=== PATIENT | male | born 1940 | race Caucasian/White ===

== ENCOUNTER 2017-06-07 05:44 | Inpatient (IN) | payer OTHER ==
[2017-06-05 10:10] VITALS: BP 136/83
[2017-06-05 10:25] LABS: BASOPHILS % (AUTO) 1.2 % (0.0-5.0); EOSINOPHILS % (AUTO) 2.9 % (0.0-8.0); HEMATOCRIT 40.2 % (42-54); LYMPHOCYTES % (AUTO) 18.6 % (21.0-51.0); MEAN CORPUSCULAR HEMOGLOBIN 30.2 pg (27.0-33.0); MEAN CORPUSCULAR HGB CONC 34.3 g/dL (32.0-36.0); MONOCYTES % (AUTO) 8.8 % (3.0-13.0); NEUTROPHILS % (AUTO) 68.5 % (40.0-77.0); PLATELET COUNT (AUTO) 138 K/uL (130-400); RED BLOOD CELL COUNT(AUTO) 4.56 MIL/uL (4.50-6.20); WHITE BLOOD COUNT (AUTO) 9.7 K/uL (4.8-10.8)
[2017-06-05 10:36] LABS: CREATININE 1.1 mg/dL (0.5-1.5)
[2017-06-05 10:37] LABS: PARTIAL THROMBOPLASTIN TIME 27.2 SEC (26.3-35.5); PROTHROMBIN TIME 10.5 SEC (9.6-11.6)
[2017-06-05 11:13] LABS: BILIRUBIN,URINE Small (NEGATIVE); COLOR,URINE Dark Yellow (YELLOW); GLUCOSE, URINE (UA) Negative (NEGATIVE); KETONES,URINE Negative (NEGATIVE); LEUKOCYTE ESTERASE ,URINE Trace (NEGATIVE); NITRATE,URINE Negative (NEGATIVE); OCCULT BLOOD,URINE Negative (NEGATIVE); PH,URINE 5.5 (5.0-8.0); PROTEIN,URINE Negative (NEGATIVE)
[2017-06-05 11:24] LABS: APPEARANCE,URINE CLEAR (CLEAR)
[2017-06-05 11:36] LABS: BACTERIA,URINE None Seen /HPF (None Seen); RBC,URINE None Seen /HPF (0-1); SQUAMOUS EPITHELIAL CELL,UR 0-2 /HPF (0-2); WBC,URINE 0-1 /HPF (0-1)
[2017-06-07] VITALS (19 sets, daily range): BP systolic 111–151; BP diastolic 68–93
[~2017-06-07] VITALS: Ht 172.7 cm; Wt 119.3 kg
[~2017-06-07 05:44] MED LIST: ALLO100T PO; ASPI-555 PO; DOXA4TAB3 PO; LISI40TA4 PO; METF500T6 PO; OMEP20TA25 PO; RIVA20TA PO; SIMV40TA5 PO; TRIA1TAB5 PO
[2017-06-07] MEDS ORDERED: SODIUM CHLORIDE 0.9% 1000ML 1,000 ML IV ONE (06:19)
[2017-06-07] MEDS ORDERED: HEPARIN SODIUM 1000UNIT/ML 10ML VIAL ONE ×2 (07:12→07:20)
[2017-06-07] MEDS ORDERED: LIDOCAINE HCL-MPF 2% 5ML VIAL ONE (07:13)
[2017-06-07] MEDS ORDERED: ISOVUE-370 50ML VIAL IV ONE (07:13)
[2017-06-07] MEDS ORDERED: IOPAMIDOL-370 100 ML VIAL IV ONE ×2 (07:13→07:48)
[2017-06-07] MEDS ORDERED: ATROPINE SULFATE 0.1 MG/ML 10 ML SYG IVP ONE (08:02)
[2017-06-07] MEDS ORDERED: DEXTROSE 50%-WATER 50 ML DISP.SYRIN IV PRN (09:00)
[2017-06-07] MEDS: METFORMIN HCL 500 MG TABLET PO SCH ×2 (09:00→20:50)
[2017-06-07] MEDS ORDERED: LISINOPRIL 40 MG TABLET PO SCH (09:00)
[2017-06-07] MEDS ORDERED: ALLOPURINOL 100 MG TABLET PO SCH (09:00)
[2017-06-07] MEDS ORDERED: ASPIRIN 81 MG EC TAB PO SCH (09:00)
[2017-06-07] MEDS ORDERED: GLUCAGON 1MG KIT 1 MG ML IM PRN (09:00)
[2017-06-07] MEDS ORDERED: MORPHINE SULFATE 5 MG/ML VIAL IVP SCH (10:15)
[2017-06-07] MEDS ORDERED: ONDANSETRON HCL MDV 20ML 2 MG/ML VIAL IVP SCH (10:15)
[2017-06-07] MEDS: INSULIN HUMULIN R 100 UNIT/ML 3ML SQ SCH ×3 (11:30→21:00)
[2017-06-07 12:24] LABS: CHOLESTEROL 132 mg/dL (<200); HDL CHOLESTEROL 51 mg/dL (29-71); LDL DIRECT 79 mg/dL (0-99); TRIGLYCERIDES 130 mg/dL (30-200)
[2017-06-07 12:35] LABS: HEMOGLOBIN A1C 7.1 % (4.0-6.0)
[2017-06-07 19:11] LABS: CHOLESTEROL 125 mg/dL (<200); HDL CHOLESTEROL 42 mg/dL (29-71); LDL DIRECT 66 mg/dL (0-99); TRIGLYCERIDES 236 mg/dL (30-200)
[2017-06-07] MEDS ORDERED: ACETAMINOPHEN-CODEINE 300/30MG TAB PO PRN (20:15)
[2017-06-07] MEDS ORDERED: ACETAMINOPHEN-CODEINE 300/30MG TAB ONE (20:40)
[2017-06-07] MEDS ORDERED: TRIAMTERENE/HYDROCHLOROTHIAZIDE 37.5/25 MG CAP PO SCH (21:00)
[2017-06-07] MEDS ORDERED: ATORVASTATIN CALCIUM 20 MG TABLET PO SCH (21:00)
[2017-06-08] VITALS (15 sets, daily range): BP systolic 78–155; BP diastolic 43–87
[2017-06-08 03:59] LABS: BASOPHILS % (AUTO) 0.8 % (0.0-5.0); EOSINOPHILS % (AUTO) 1.1 % (0.0-8.0); HEMATOCRIT 38.8 % (42-54); LYMPHOCYTES % (AUTO) 18.4 % (21.0-51.0); MEAN CORPUSCULAR HEMOGLOBIN 29.6 pg (27.0-33.0); MEAN CORPUSCULAR HGB CONC 33.9 g/dL (32.0-36.0); MEAN CORPUSCULAR VOLUME 87.5 fL (79-99); MONOCYTES % (AUTO) 9.4 % (3.0-13.0); NEUTROPHILS % (AUTO) 70.3 % (40.0-77.0); PLATELET COUNT (AUTO) 145 K/uL (130-400); RED BLOOD CELL COUNT(AUTO) 4.43 MIL/uL (4.50-6.20); RED CELL DISTRIBUTION WIDTH 14.9 % (11.0-15.5); WHITE BLOOD COUNT (AUTO) 13.6 K/uL (4.8-10.8)
[2017-06-08 04:18] LABS: CREATININE 1.2 mg/dL (0.5-1.5); POTASSIUM 3.7 mmol/L (3.5-5.1)
[2017-06-08] MEDS ORDERED: POTASSIUM CHLORIDE 20MEQ/100ML 100 ML IV ONE (05:33)
[2017-06-08] MEDS ORDERED: LIDOCAINE HCL-MPF 1% 2ML VIAL ONE (05:37)
[2017-06-08] MEDS: INSULIN HUMULIN R 100 UNIT/ML 3ML SQ SCH (06:24)
[2017-06-08] MEDS ORDERED: PANTOPRAZOLE SODIUM 40 MG TABLET.DR PO SCH (09:00)
[2017-06-08] MEDS ORDERED: DOXAZOSIN MESYLATE 2 MG TABLET PO SCH (09:00)
[2017-06-08] MEDS ORDERED: CEFUROXIME SODIUM 1.5 GM VIAL IVP SCH (09:00)
[2017-06-08 09:01] LABS: BASOPHILS % (AUTO) 0.4 % (0.0-5.0); EOSINOPHILS % (AUTO) 0.6 % (0.0-8.0); HEMATOCRIT 40.5 % (42-54); LYMPHOCYTES % (AUTO) 12.3 % (21.0-51.0); MEAN CORPUSCULAR HEMOGLOBIN 29.6 pg (27.0-33.0); MEAN CORPUSCULAR HGB CONC 33.7 g/dL (32.0-36.0); MEAN CORPUSCULAR VOLUME 87.9 fL (79-99); MONOCYTES % (AUTO) 8.4 % (3.0-13.0); NEUTROPHILS % (AUTO) 78.3 % (40.0-77.0); PLATELET COUNT (AUTO) 130 K/uL (130-400); RED BLOOD CELL COUNT(AUTO) 4.61 MIL/uL (4.50-6.20); RED CELL DISTRIBUTION WIDTH 14.6 % (11.0-15.5); WHITE BLOOD COUNT (AUTO) 13.1 K/uL (4.8-10.8)
[2017-06-08 09:56] LABS: APPEARANCE,URINE Cloudy (CLEAR); BILIRUBIN,URINE Negative (NEGATIVE); COLOR,URINE Yellow (YELLOW); GLUCOSE, URINE (UA) Negative (NEGATIVE); KETONES,URINE Negative (NEGATIVE); LEUKOCYTE ESTERASE ,URINE Negative (NEGATIVE); NITRATE,URINE Negative (NEGATIVE); OCCULT BLOOD,URINE Negative (NEGATIVE); PH,URINE 7.5 (5.0-8.0); PROTEIN,URINE Negative (NEGATIVE)
[2017-06-08] MEDS ORDERED: GLYCOPYRROLATE 0.2 MG/ML 5 ML VIAL ONE (10:20)
[2017-06-08] MEDS ORDERED: HEPARIN SODIUM 1000UNIT/ML 10ML VIAL ONE ×2 (10:20→15:41)
[2017-06-08] MEDS ORDERED: LIDOCAINE PF 2% 5ML ABBOJECT ONE (10:20)
[2017-06-08] MEDS ORDERED: ESMOLOL HCL 10 MG/ML 10 ML VIAL ONE ×2 (10:20→17:19)
[2017-06-08] MEDS ORDERED: PROTAMINE SULFATE 10 MG/ML 25ML VIAL IV ONE (10:20)
[2017-06-08] MEDS ORDERED: PROPOFOL 10 MG/ML 20ML VIAL IV ONE (10:21)
[2017-06-08] MEDS ORDERED: EPINEPHRINE 1 MG/ML AMPULE ONE (10:21)
[2017-06-08] MEDS ORDERED: MILRINONE-D5W 20 MG/100 ML 0 ML IV ONE (10:21)
[2017-06-08] MEDS ORDERED: MIDAZOLAM HCL 1 MG/ML 5ML VIAL ONE (10:21)
[2017-06-08] MEDS ORDERED: KETAMINE 50MG/ML SYRINGE 50 MG/ML DISP.SYRIN IV ONE (10:21)
[2017-06-08] MEDS ORDERED: NOREPINEPHRINE BITARTRATE 1 MG/1 ML ML IV ONE (10:21)
[2017-06-08] MEDS ORDERED: AMINOCAPROIC ACID 250 MG/ML 20 ML VIAL IV ONE (10:21)
[2017-06-08] MEDS ORDERED: ROCURONIUM BROMIDE 10MG/1ML 5ML VL ONE ×2 (10:21→18:03)
[2017-06-08 10:28] LABS: BACTERIA,URINE Rare /HPF (None Seen); RBC,URINE 0-1 /HPF (0-1); SQUAMOUS EPITHELIAL CELL,UR Rare /HPF (0-2); WBC,URINE 0-1 /HPF (0-1)
[2017-06-08] MEDS ORDERED: CEFUROXIME 1.5GM+NS 100ML 100 ML IV SCH (14:00)
[2017-06-08] MEDS ORDERED: NITROGLYCERIN 50 MG/D5% WATER 1 BOT ONE (14:01)
[2017-06-08] MEDS ORDERED: PAPAVERINE HCL 30 MG/ML 2ML VIAL ONE (15:34)
[2017-06-08] MEDS ORDERED: OCTYL 2-CYANOACRYLATE 1 EACH TP ONE (15:34)
[2017-06-08] MEDS ORDERED: BACITRACIN 50,000 UNIT VIAL ONE (15:34)
[2017-06-08 15:40] LABS: ABG BASE EXCESS 0.6 mmol/L (-2.0-3.0); ABG HCO3 23.9 mmol/L (21.0-28.0); ABG OXYGEN SATURATION 99.2 % (95.0-99.0); ABG PCO2 34 mmHg (35-48)
[2017-06-08] MEDS ORDERED: THROMBIN-JMI 5000 UNIT/VIAL TP ONE (15:42)
[2017-06-08 17:12] LABS: ABG HCO3 21.1 mmol/L (21.0-28.0); ABG OXYGEN SATURATION 99.2 % (95.0-99.0); ABG PCO2 39 mmHg (35-48)
[2017-06-08] MEDS ORDERED: SODIUM CHLORIDE 0.9% 500ML 500 ML IV SCH (17:44)
[2017-06-08] MEDS ORDERED: DEXTROSE 50%-WATER 50 ML DISP.SYRIN IV PRN (17:45)
[2017-06-08] MEDS ORDERED: SODIUM CHLORIDE 0.9% 1000ML 1,000 ML IV SCH (17:45)
[2017-06-08] MEDS ORDERED: POTASSIUM PHOS 15 mMOL+NS250ML 250 ML IV PRN (17:45)
[2017-06-08] MEDS ORDERED: CALCIUM GLUCONATE 1 GM in SODIUM CHLORIDE 0.9% 50 ML IV PRN (17:45)
[2017-06-08] MEDS ORDERED: ONDANSETRON HCL MDV 20ML 2 MG/ML VIAL IV PRN (17:45)
[2017-06-08] MEDS ORDERED: ALBUMIN (HUMAN) 5% 250 ML IV PRN (17:45)
[2017-06-08] MEDS ORDERED: SODIUM CHLORIDE 0.9% 10 ML VIAL IVP PRN (17:45)
[2017-06-08] MEDS ORDERED: PROPOFOL 1000 MG/100 ML 100 ML IV PRN (17:45)
[2017-06-08] MEDS ORDERED: GLUCAGON 1MG KIT 1 MG ML IM PRN (17:45)
[2017-06-08] MEDS ORDERED: NITROGLYCERIN 50 MG/D5% WATER 250 BOT IV SCH (17:45)
[2017-06-08] MEDS ORDERED: AMINOCAPROIC ACID 15,000 MG in SODIUM CHLORIDE 0.9% 250 ML IV SCH (17:45)
[2017-06-08] MEDS ORDERED: SODIUM CHLORIDE 0.9% 250 ML IV PRN (17:45)
[2017-06-08] MEDS ORDERED: ACETAMINOPHEN 650 MG SUPPOSITORY RC PRN (17:45)
[2017-06-08] MEDS ORDERED: MORPHINE SULFATE 4 MG/1ML SYG IV PRN (17:45)
[2017-06-08] MEDS ORDERED: NICARDIPINE HCL 100 MG in SODIUM CHLORIDE 0.9% 60 ML IV PRN (17:45)
[2017-06-08] MEDS ORDERED: NOREPINEPHRINE 4MG/NS 250ML 250 ML IV PRN (17:45)
[2017-06-08] MEDS ORDERED: EPINEPHRINE 2 MG in SODIUM CHLORIDE 0.9% 250 ML IV PRN (17:45)
[2017-06-08] MEDS ORDERED: FENTANYL CITRATE PF 50 MCG/1 ML 5ML AMP IV ONE ×2 (17:48→17:49)
[2017-06-08 18:03] LABS: ABG BASE EXCESS -4.5 mmol/L (-2.0-3.0); ABG HCO3 21.1 mmol/L (21.0-28.0); ABG OXYGEN SATURATION 99.2 % (95.0-99.0); ABG PCO2 41 mmHg (35-48)
[2017-06-08] MEDS ORDERED: SODIUM BICARB 50MEQ 50ML VIAL ONE ×5 (18:05→22:40)
[2017-06-08 19:09] LABS: ABG BASE EXCESS -7.7 mmol/L (-2.0-3.0); ABG HCO3 19.2 mmol/L (21.0-28.0); ABG OXYGEN SATURATION 96.4 % (95.0-99.0); ABG PCO2 45 mmHg (35-48)
[2017-06-08 19:15] LABS: HEMATOCRIT 37.6 % (42-54); MEAN CORPUSCULAR HEMOGLOBIN 29.6 pg (27.0-33.0); MEAN CORPUSCULAR HGB CONC 33.3 g/dL (32.0-36.0); PLATELET COUNT (AUTO) 169 K/uL (130-400); RED BLOOD CELL COUNT(AUTO) 4.23 MIL/uL (4.50-6.20); RED CELL DISTRIBUTION WIDTH 15.1 % (11.0-15.5)
[2017-06-08] MEDS: INSULIN REGULAR, HUMAN 3ML 100 UNIT in SODIUM CHLORIDE 0.9% 99 ML IV SCH ×2 (19:17)
[2017-06-08 19:28] LABS: WHITE BLOOD COUNT (AUTO) 34.1 K/uL (4.8-10.8)
[2017-06-08 19:29] LABS: CREATININE 1.2 mg/dL (0.5-1.5); PHOSPHORUS 4.4 mg/dL (2.5-4.9); POTASSIUM 3.3 mmol/L (3.5-5.1)
[2017-06-08] MEDS: MAGNESIUM 2GM PREMIX 50ML 50 ML IV PRN ×2 (19:37→21:08)
[2017-06-08] MEDS: POTASSIUM CHLORIDE 20MEQ/100ML 100 ML IV PRN ×2 (19:39→20:53)
[2017-06-08] MEDS ORDERED: DIGOXIN 250 MCG/ML 2ML AMP ONE (19:47)
[2017-06-08 19:57] LABS: BAND NEUTROPHILS % (MANUAL) 6 % (0-2); EOSINOPHILS % (MANUAL) 1 % (1-6); LYMPHOCYTES % (MANUAL) 13 % (22-44); MAN.DIFF COMMENT-IMPRESSION MANUAL DIFFERENTIAL; MONOCYTES % (MANUAL) 4 % (2-9); SEGMENTED NEUTROPHILS % 76 % (40-70)
[2017-06-08] MEDS ORDERED: DIGOXIN 250 MCG TABLET PO SCH (20:00)
[2017-06-08] MEDS: MORPHINE SULFATE 2 MG/ML 1ML SYG IV PRN (20:01)
[2017-06-08 20:07] LABS: PLATELET MORPHOLOGY COMMENT LARGE PLTS
[2017-06-08 20:21] LABS: ABG BASE EXCESS -2.4 mmol/L (-2.0-3.0); ABG OXYGEN SATURATION 97.3 % (95.0-99.0); ABG PCO2 48 mmHg (35-48)
[2017-06-08] MEDS ORDERED: SODIUM CHLORIDE 0.9% 1000ML 1,000 ML IV ONE (20:35)
[2017-06-08] MEDS: SODIUM BICARB 8.4% 50ML SYRINGE IV PRN ×2 (20:43→22:42)
[2017-06-08 21:43] LABS: ABG BASE EXCESS -3.8 mmol/L (-2.0-3.0); ABG HCO3 21.3 mmol/L (21.0-28.0); ABG OXYGEN SATURATION 98.3 % (95.0-99.0); ABG PCO2 39 mmHg (35-48)
[2017-06-08 23:08] LABS: ABG BASE EXCESS -1.2 mmol/L (-2.0-3.0); ABG HCO3 23.8 mmol/L (21.0-28.0); ABG OXYGEN SATURATION 96.7 % (95.0-99.0); ABG PCO2 41 mmHg (35-48)
[2017-06-08 23:23] LABS: POTASSIUM 3.8 mmol/L (3.5-5.1)
[2017-06-09] VITALS (24 sets, daily range): BP systolic 91–136; BP diastolic 47–86
[2017-06-09] MEDS: MORPHINE SULFATE 2 MG/ML 1ML SYG IV PRN (00:08)
[2017-06-09 01:23] LABS: ABG BASE EXCESS -0.5 mmol/L (-2.0-3.0); ABG HCO3 24.2 mmol/L (21.0-28.0); ABG OXYGEN SATURATION 97.8 % (95.0-99.0); ABG PCO2 40 mmHg (35-48)
[2017-06-09] MEDS: POTASSIUM CHLORIDE 20MEQ/100ML 100 ML IV PRN ×3 (01:26→16:00)
[2017-06-09] MEDS ORDERED: CEFUROXIME 1.5GM+NS 100ML 100 ML IV SCH (01:45)
[2017-06-09] MEDS: CEFUROXIME SODIUM 1.5 GM VIAL IVP SCH ×2 (02:51→15:25)
[2017-06-09] MEDS ORDERED: CALCIUM GLUCONATE 1 GM/10 ML VIAL IV ONE (02:59)
[2017-06-09 04:28] LABS: HEMATOCRIT 33.7 % (42-54); MEAN CORPUSCULAR HEMOGLOBIN 30.9 pg (27.0-33.0); MEAN CORPUSCULAR HGB CONC 35.2 g/dL (32.0-36.0); MEAN CORPUSCULAR VOLUME 87.7 fL (79-99); PLATELET COUNT (AUTO) 157 K/uL (130-400); RED BLOOD CELL COUNT(AUTO) 3.84 MIL/uL (4.50-6.20); RED CELL DISTRIBUTION WIDTH 15.1 % (11.0-15.5)
[2017-06-09] MEDS: ACETAMINOPHEN 325 MG TAB PO PRN ×3 (04:36→13:16)
[2017-06-09 04:41] LABS: CREATININE 1.4 mg/dL (0.5-1.5); PHOSPHORUS 2.1 mg/dL (2.5-4.9); POTASSIUM 4.2 mmol/L (3.5-5.1)
[2017-06-09] MEDS: INSULIN REGULAR, HUMAN 3ML 100 UNIT in SODIUM CHLORIDE 0.9% 99 ML IV SCH ×2 (05:08)
[2017-06-09] MEDS: HYDROCODONE/ACETAMINOPHEN 5/325 MG TAB PO PRN ×3 (05:47→19:26)
[2017-06-09] MEDS: PANTOPRAZOLE SODIUM 40 MG TABLET.DR PO SCH (08:28)
[2017-06-09] MEDS: ALLOPURINOL 100 MG TABLET PO SCH (08:29)
[2017-06-09] MEDS ORDERED: DOXAZOSIN MESYLATE 2 MG TABLET PO SCH (09:00)
[2017-06-09 15:02] LABS: MAGNESIUM 1.9 mg/dL (1.80-2.40); PHOSPHORUS 3.2 mg/dL (2.5-4.9); POTASSIUM 3.9 mmol/L (3.5-5.1)
[2017-06-09] MEDS: DIGOXIN 250 MCG/ML 2ML AMP IV SCH ×2 (15:59→19:43)
[2017-06-09] MEDS: MAGNESIUM 2GM PREMIX 50ML 50 ML IV PRN (17:18)
[2017-06-09 20:22] LABS: ABG BASE EXCESS 2.6 mmol/L (-2.0-3.0); ABG HCO3 27.3 mmol/L (21.0-28.0); ABG OXYGEN SATURATION 94.7 % (95.0-99.0); ABG PCO2 42 mmHg (35-48)
[2017-06-10] VITALS (21 sets, daily range): BP systolic 94–149; BP diastolic 48–77
[2017-06-10] MEDS: DIGOXIN 250 MCG/ML 2ML AMP IV SCH ×2 (00:58→06:15)
[2017-06-10 04:52] LABS: HEMATOCRIT 30.9 % (42-54); MEAN CORPUSCULAR HEMOGLOBIN 30.4 pg (27.0-33.0); MEAN CORPUSCULAR HGB CONC 34.6 g/dL (32.0-36.0); MEAN CORPUSCULAR VOLUME 87.9 fL (79-99); PLATELET COUNT (AUTO) 111 K/uL (130-400); RED BLOOD CELL COUNT(AUTO) 3.51 MIL/uL (4.50-6.20); RED CELL DISTRIBUTION WIDTH 15.1 % (11.0-15.5); WHITE BLOOD COUNT (AUTO) 27.5 K/uL (4.8-10.8)
[2017-06-10 05:17] LABS: CREATININE 1.2 mg/dL (0.5-1.5); POTASSIUM 4.3 mmol/L (3.5-5.1)
[2017-06-10] MEDS: HYDROCODONE/ACETAMINOPHEN 5/325 MG TAB PO PRN ×2 (06:16→18:26)
[2017-06-10] MEDS ORDERED: CEFUROXIME SODIUM 1.5 GM VIAL ONE (06:17)
[2017-06-10] MEDS: CEFUROXIME SODIUM 1.5 GM VIAL IVP SCH (06:18)
[2017-06-10] MEDS: INSULIN HUMULIN R 100 UNIT/ML 3ML SQ SCH ×4 (07:30→19:59)
[2017-06-10] MEDS: METOCLOPRAMIDE 5 MG TABLET PO SCH ×4 (07:34→19:44)
[2017-06-10] MEDS: SIMETHICONE 80 MG TAB.CHEW PO SCH ×4 (09:31→19:45)
[2017-06-10] MEDS ORDERED: FUROSEMIDE 10 MG/ML 4ML VIAL IV SCH (09:58)
[2017-06-10] MEDS ORDERED: FUROSEMIDE 100 MG in SODIUM CHLORIDE 0.9% 90 ML IV SCH (10:00)
[2017-06-10] MEDS ORDERED: FUROSEMIDE 10 MG/ML 4ML VIAL ONE (10:01)
[2017-06-10] MEDS: PANTOPRAZOLE SODIUM 40 MG TABLET.DR PO SCH (10:53)
[2017-06-10] MEDS: DOXAZOSIN MESYLATE 2 MG TABLET PO SCH (10:54)
[2017-06-10] MEDS: ALLOPURINOL 100 MG TABLET PO SCH (10:54)
[2017-06-10] MEDS: IPRATROPIUM 0.5 MG/2.5 ML INH IH SCH ×3 (11:01→23:29)
[2017-06-10] MEDS ORDERED: MAG HYDROX/AL HYDROX/SIMETH ES 30 ML SUSP UDCUP ONE (17:03)
[2017-06-10] MEDS ORDERED: MAG HYDROX/AL HYDROX/SIMETH ES 30 ML SUSP UDCUP PO PRN (17:15)
[2017-06-10] MEDS: ATORVASTATIN CALCIUM 40 MG TABLET PO SCH (19:44)
[2017-06-10] MEDS ORDERED: METOPROLOL TARTRATE 25 MG TAB PO SCH (21:00)
[2017-06-11] VITALS (12 sets, daily range): BP systolic 88–112; BP diastolic 54–68
[2017-06-11 05:21] LABS: HEMATOCRIT 28.7 % (42-54); MEAN CORPUSCULAR HEMOGLOBIN 31.1 pg (27.0-33.0); MEAN CORPUSCULAR HGB CONC 35.1 g/dL (32.0-36.0); MEAN CORPUSCULAR VOLUME 88.7 fL (79-99); PLATELET COUNT (AUTO) 92 K/uL (130-400); RED BLOOD CELL COUNT(AUTO) 3.23 MIL/uL (4.50-6.20); RED CELL DISTRIBUTION WIDTH 15.2 % (11.0-15.5); WHITE BLOOD COUNT (AUTO) 18.9 K/uL (4.8-10.8)
[2017-06-11 05:27] LABS: CREATININE 1.2 mg/dL (0.5-1.5); POTASSIUM 3.7 mmol/L (3.5-5.1)
[2017-06-11] MEDS: METOCLOPRAMIDE 5 MG TABLET PO SCH ×4 (05:50→20:44)
[2017-06-11] MEDS: INSULIN HUMULIN R 100 UNIT/ML 3ML SQ SCH ×4 (05:51→21:00)
[2017-06-11] MEDS: IPRATROPIUM 0.5 MG/2.5 ML INH IH SCH ×4 (06:03→23:20)
[2017-06-11] MEDS: PANTOPRAZOLE SODIUM 40 MG TABLET.DR PO SCH (08:27)
[2017-06-11] MEDS: FUROSEMIDE 10 MG/ML 4ML VIAL IV SCH ×3 (08:27→20:44)
[2017-06-11] MEDS: DOXAZOSIN MESYLATE 2 MG TABLET PO SCH (08:28)
[2017-06-11] MEDS: POLYETHYLENE GLYCOL 3350 17 GM POWD.PACK PO SCH (08:28)
[2017-06-11] MEDS: METOPROLOL TARTRATE 25 MG TAB PO SCH ×2 (08:28→20:44)
[2017-06-11] MEDS: SIMETHICONE 80 MG TAB.CHEW PO SCH ×4 (08:28→21:03)
[2017-06-11] MEDS: ALLOPURINOL 100 MG TABLET PO SCH (08:28)
[2017-06-11] MEDS ORDERED: FUROSEMIDE 10 MG/ML 4ML VIAL IV SCH (09:00)
[2017-06-11] MEDS: ASPIRIN 81MG TAB.CHEW PO SCH (09:46)
[2017-06-11] MEDS: ATORVASTATIN CALCIUM 40 MG TABLET PO SCH (20:44)
[2017-06-11] MEDS: RIVAROXABAN 20 MG TABLET PO SCH (20:44)
[2017-06-12 04:05] VITALS: BP 102/64
[2017-06-12 04:40] LABS: HEMATOCRIT 29.9 % (42-54); MEAN CORPUSCULAR HEMOGLOBIN 29.8 pg (27.0-33.0); MEAN CORPUSCULAR HGB CONC 34.2 g/dL (32.0-36.0); MEAN CORPUSCULAR VOLUME 87.1 fL (79-99); NUCLEATED RED BLOOD CELLS 0.1 % (0.0-0.19); PLATELET COUNT (AUTO) 104 K/uL (130-400); RED BLOOD CELL COUNT(AUTO) 3.43 MIL/uL (4.50-6.20); RED CELL DISTRIBUTION WIDTH 15.1 % (11.0-15.5); WHITE BLOOD COUNT (AUTO) 15.7 K/uL (4.8-10.8)
[2017-06-12 04:50] LABS: CREATININE 1.1 mg/dL (0.5-1.5); POTASSIUM 3.3 mmol/L (3.5-5.1)
[2017-06-12] MEDS: INSULIN HUMULIN R 100 UNIT/ML 3ML SQ SCH ×4 (06:15→20:41)
[2017-06-12] MEDS: METOCLOPRAMIDE 5 MG TABLET PO SCH ×4 (06:40→20:40)
[2017-06-12] MEDS: IPRATROPIUM 0.5 MG/2.5 ML INH IH SCH ×3 (06:45→18:25)
[2017-06-12 07:47] VITALS: BP 109/67
[2017-06-12] MEDS ORDERED: MAGNESIUM CITRATE 296 ML SOLUTION PO PRN (08:45)
[2017-06-12] MEDS: POLYETHYLENE GLYCOL 3350 17 GM POWD.PACK PO SCH (09:00)
[2017-06-12] MEDS: ALLOPURINOL 100 MG TABLET PO SCH (09:43)
[2017-06-12] MEDS: SIMETHICONE 80 MG TAB.CHEW PO SCH ×4 (09:43→20:39)
[2017-06-12] MEDS: PANTOPRAZOLE SODIUM 40 MG TABLET.DR PO SCH (09:43)
[2017-06-12] MEDS: DOXAZOSIN MESYLATE 2 MG TABLET PO SCH (09:44)
[2017-06-12] MEDS: METOPROLOL TARTRATE 25 MG TAB PO SCH ×2 (09:44→20:39)
[2017-06-12] MEDS: ASPIRIN 81MG TAB.CHEW PO SCH (09:44)
[2017-06-12 11:07] VITALS: BP 96/77
[2017-06-12 16:36] VITALS: BP 110/67
[2017-06-12 19:41] VITALS: BP 103/75
[2017-06-12] MEDS: ATORVASTATIN CALCIUM 40 MG TABLET PO SCH (20:39)
[2017-06-12] MEDS: RIVAROXABAN 20 MG TABLET PO SCH (20:39)
[2017-06-12 23:28] VITALS: BP 118/67
[2017-06-13] MEDS: IPRATROPIUM 0.5 MG/2.5 ML INH IH SCH ×4 (00:02→19:05)
[2017-06-13 03:56] VITALS: BP 113/66
[2017-06-13 04:52] LABS: POTASSIUM 3.2 mmol/L (3.5-5.1)
[2017-06-13] MEDS: INSULIN HUMULIN R 100 UNIT/ML 3ML SQ SCH ×3 (05:56→16:30)
[2017-06-13] MEDS: POTASSIUM CHLORIDE 20MEQ/100ML 100 ML IV PRN ×2 (06:02→13:53)
[2017-06-13] MEDS: METOCLOPRAMIDE 5 MG TABLET PO SCH ×3 (06:36→16:30)
[2017-06-13 07:42] VITALS: BP 110/64
[2017-06-13] MEDS ORDERED: FUROSEMIDE 40 MG TABLET PO SCH (09:00)
[2017-06-13] MEDS: ASPIRIN 81MG TAB.CHEW PO SCH (09:57)
[2017-06-13] MEDS: SIMETHICONE 80 MG TAB.CHEW PO SCH ×2 (09:57→13:49)
[2017-06-13] MEDS: DOXAZOSIN MESYLATE 2 MG TABLET PO SCH (09:58)
[2017-06-13] MEDS: METOPROLOL TARTRATE 25 MG TAB PO SCH (09:58)
[2017-06-13] MEDS: POLYETHYLENE GLYCOL 3350 17 GM POWD.PACK PO SCH (09:58)
[2017-06-13] MEDS: PANTOPRAZOLE SODIUM 40 MG TABLET.DR PO SCH (09:59)
[2017-06-13] MEDS: ALLOPURINOL 100 MG TABLET PO SCH (09:59)
[2017-06-13 11:29] VITALS: BP 108/72
[2017-06-13 16:20] VITALS: BP 102/61
[2017-06-24] MEDS ORDERED: IPRA3AMP4 IH (10:57)
[2017-08-28] MEDS ORDERED: ASPI-555 PO (13:43)
[2017-08-28] MEDS ORDERED: OMEP20CA10 PO (13:43)
[2017-08-28] MEDS ORDERED: SPIR25TA4 PO ×2 (13:43→13:47)
[2017-08-28] MEDS ORDERED: TICA90TA PO (13:43)
[2017-08-28] MEDS ORDERED: SITA50TA PO (13:43)
[2017-08-28] MEDS ORDERED: CARV6.25 PO (13:43)
[2017-08-28] MEDS ORDERED: FURO-151 PO (13:43)
[2017-08-28] MEDS ORDERED: AMIO200T2 PO (13:43)
[2017-08-28] MEDS ORDERED: SIMV40TA5 PO (13:43)
== END 2017-06-13 20:00 | DRG 233 ==
LOC: DAH 05:44 → OBSVTOIN 05:45 → DAHIP 05:45 → DAH 05:45 → 2AH 11:54 → 2CV 06-08 14:49 → 2CH 06-09 06:06 → 2BH 06-10 16:01 → 2DH 06-11 16:47
PROVIDERS: ADMIT Internal Medicine Cardiovascular Disease; ATTEND Internal Medicine Cardiovascular Disease
PROC: B2111ZZ Fluoroscopy of Multiple Coronary Arteries using Low Osmolar Contrast (ICD-10-PCS; 2017-06-07)
PROC: B2151ZZ Fluoroscopy of Left Heart using Low Osmolar Contrast (ICD-10-PCS; 2017-06-07)
PROC: 4A023N7 Measurement of Cardiac Sampling and Pressure, Left Heart, Percutaneous Approach (ICD-10-PCS; 2017-06-07)
PROC: 06BQ4ZZ Excision of Left Saphenous Vein, Percutaneous Endoscopic Approach (ICD-10-PCS; 2017-06-08)
PROC: 5A09357 Assistance with Respiratory Ventilation, Less than 24 Consecutive Hours, Continuous Positive Airway Pressure (ICD-10-PCS; 2017-06-08)
PROC: 02100Z9 Bypass Coronary Artery, One Artery from Left Internal Mammary, Open Approach (ICD-10-PCS; principal; 2017-06-08 15:04)
PROC: 021109W Bypass Coronary Artery, Two Arteries from Aorta with Autologous Venous Tissue, Open Approach (ICD-10-PCS; 2017-06-08 15:04)
PROC: 5A09357 Assistance with Respiratory Ventilation, Less than 24 Consecutive Hours, Continuous Positive Airway Pressure (ICD-10-PCS; 2017-06-10)
PROC: 5A09357 Assistance with Respiratory Ventilation, Less than 24 Consecutive Hours, Continuous Positive Airway Pressure (ICD-10-PCS; 2017-06-11)
PROC: 5A09357 Assistance with Respiratory Ventilation, Less than 24 Consecutive Hours, Continuous Positive Airway Pressure (ICD-10-PCS; 2017-06-12)
DX: I25.119 Atherosclerotic heart disease of native coronary artery with unspecified angina pectoris (principal); I50.31 Acute diastolic (congestive) heart failure; Z68.41 Body mass index [BMI] 40.0-44.9, adult; E66.01 Morbid (severe) obesity due to excess calories; I48.2 Chronic atrial fibrillation; E11.9 Type 2 diabetes mellitus without complications; E78.5 Hyperlipidemia, unspecified; G47.33 Obstructive sleep apnea (adult) (pediatric); I11.0 Hypertensive heart disease with heart failure; N40.0 Benign prostatic hyperplasia without lower urinary tract symptoms; Z79.01 Long term (current) use of anticoagulants; Z79.82 Long term (current) use of aspirin; Z79.899 Other long term (current) drug therapy; Z87.891 Personal history of nicotine dependence; Z88.2 Allergy status to sulfonamides
CPT/HCPCS: 36415; 36600; 71045; 71046; 80048; 80061; 81001; 82330; 82435; 82803; 82947; 82948; 83036; 83605; 83735; 83880; 84100; 84132; 84295; 85007; 85018; 85025; 85027; 85060; 85347; 85610; 85730; 86850; 86900; 86901; 86922; 88313; 93005; 93458; 93880; 94002; 94010; 94150; 94640; 94660; 94664; 97039; A4218; A4606; A7048; C1769; C1884; C1887; C1894; C9600; J0171; J0461; J0610; J0697; J1160; J1644; J1815; J1940; J2001; J2250; J2260; J2440; J2704; J2720; J3010; J3475; J3480; J3490; J7030; J7040; P9045; Q9967

== ENCOUNTER 2017-06-23 23:45 | Inpatient (IN) | payer OTHER ==
[~2017-06-23] VITALS: Ht 172.7 cm; Wt 104.9 kg
[2017-06-24] VITALS (17 sets, daily range): BP systolic 83–117; BP diastolic 35–80
[2017-06-24] MEDS ORDERED: ADENOSINE 3 MG/ML 2ML VIAL IV ONE ×2 (00:03→00:04)
[2017-06-24 00:12] LABS: BASOPHILS % (AUTO) 1.3 % (0.0-5.0); EOSINOPHILS % (AUTO) 0.6 % (0.0-8.0); HEMATOCRIT 31.7 % (42-54); MEAN CORPUSCULAR HEMOGLOBIN 29.9 pg (27.0-33.0); MEAN CORPUSCULAR HGB CONC 33.6 g/dL (32.0-36.0); MONOCYTES % (AUTO) 9.5 % (3.0-13.0); NEUTROPHILS % (AUTO) 76.6 % (40.0-77.0); NUCLEATED RED BLOOD CELLS 0.1 % (0.0-0.19); PLATELET COUNT (AUTO) 359 K/uL (130-400); RED BLOOD CELL COUNT(AUTO) 3.57 MIL/uL (4.50-6.20); WHITE BLOOD COUNT (AUTO) 16.3 K/uL (4.8-10.8)
[2017-06-24 00:20] LABS: CREATININE 1.7 mg/dL (0.5-1.5); POTASSIUM 4.7 mmol/L (3.5-5.1)
[2017-06-24 00:24] LABS: INR 1.52 (0.85-1.15); PARTIAL THROMBOPLASTIN TIME 34.7 SEC (26.3-35.5); PROTHROMBIN TIME 15.4 SEC (9.6-11.6)
[2017-06-24] MEDS ORDERED: DEXTROSE 5%-WATER 500 ML IV ONE (00:45)
[2017-06-24] MEDS ORDERED: AMIODARONE HCL 900MG/18ML IV ONE (00:48)
[2017-06-24 00:49] LABS: ALBUMIN 2.6 g/dL (3.5-5.0); BILIRUBIN,TOTAL 0.7 mg/dL (0.2-1.0); CREATINE KINASE MB 2.2 ng/mL (0.5-3.6); TOTAL PROTEIN, SERUM 6.6 g/dL (6.0-8.3)
[2017-06-24] MEDS ORDERED: FUROSEMIDE 10 MG/ML 4ML VIAL ONE (00:59)
[2017-06-24] MEDS ORDERED: FUROSEMIDE 10 MG/ML 2ML VIAL ONE (00:59)
[2017-06-24 03:15] LABS: APPEARANCE,URINE Clear (CLEAR); BILIRUBIN,URINE Negative (NEGATIVE); COLOR,URINE Yellow (YELLOW); GLUCOSE, URINE (UA) Negative (NEGATIVE); KETONES,URINE Negative (NEGATIVE); LEUKOCYTE ESTERASE ,URINE Negative (NEGATIVE); NITRATE,URINE Negative (NEGATIVE); OCCULT BLOOD,URINE Negative (NEGATIVE); PROTEIN,URINE Negative (NEGATIVE)
[2017-06-24] MEDS ORDERED: ACETAMINOPHEN 325 MG TAB PO PRN ×2 (06:15)
[2017-06-24] MEDS ORDERED: NITROGLYCERIN 0.4 MG SL TAB SL PRN (06:15)
[2017-06-24] MEDS ORDERED: LACTULOSE 20 GM/30 ML UDCUP PO PRN (06:15)
[2017-06-24] MEDS ORDERED: ONDANSETRON HCL 4 MG/2 ML VIAL IV PRN (06:15)
[2017-06-24] MEDS ORDERED: GUAIFENESIN-DM 200/20 MG 10 ML PO PRN (06:15)
[2017-06-24] MEDS: INSULIN HUMULIN R 100 UNIT/ML 3ML SQ SCH ×4 (06:24→20:40)
[2017-06-24 06:34] LABS: HEMATOCRIT 28.1 % (42-54); MEAN CORPUSCULAR HEMOGLOBIN 29.6 pg (27.0-33.0); MEAN CORPUSCULAR HGB CONC 33.7 g/dL (32.0-36.0); MEAN CORPUSCULAR VOLUME 87.8 fL (79-99); PLATELET COUNT (AUTO) 329 K/uL (130-400); RED BLOOD CELL COUNT(AUTO) 3.21 MIL/uL (4.50-6.20); RED CELL DISTRIBUTION WIDTH 15.8 % (11.0-15.5)
[2017-06-24] MEDS ORDERED: AMIODARONE HCL 900 MG in DEXTROSE 5%-WATER 500 ML IV SCH (06:45)
[2017-06-24 06:47] LABS: B-TYPE NATRIURETIC PEPTIDE 1110 pg/mL (0-100)
[2017-06-24 06:59] LABS: CREATINE KINASE MB 2.6 ng/mL (0.5-3.6); CREATININE 1.5 mg/dL (0.5-1.5); POTASSIUM 3.6 mmol/L (3.5-5.1); TROPONIN I 0.48 ng/mL (0.00-0.06)
[2017-06-24] MEDS ORDERED: MAGNESIUM CITRATE 296 ML SOLUTION PO PRN (07:30)
[2017-06-24] MEDS: POLYETHYLENE GLYCOL 3350 17 GM POWD.PACK PO SCH ×2 (08:45→09:00)
[2017-06-24] MEDS: FAMOTIDINE 20MG TAB 20 MG TAB PO SCH (08:45)
[2017-06-24] MEDS: ASPIRIN 81 MG EC TAB PO SCH (08:45)
[2017-06-24] MEDS: RIVAROXABAN 20 MG TABLET PO SCH (08:45)
[2017-06-24] MEDS: METOPROLOL TARTRATE 25 MG TAB PO SCH ×2 (08:45→20:34)
[2017-06-24] MEDS: FUROSEMIDE 10 MG/ML 4ML VIAL IVP SCH ×2 (08:45→20:33)
[2017-06-24] MEDS: ALLOPURINOL 100 MG TABLET PO SCH (08:45)
[2017-06-24] MEDS: DOXAZOSIN MESYLATE 2 MG TABLET PO SCH (08:45)
[2017-06-24] MEDS: SIMETHICONE 80 MG TAB.CHEW PO SCH ×4 (08:45→20:34)
[2017-06-24] MEDS ORDERED: METOPROLOL TARTRATE 25 MG TAB PO SCH (09:00)
[2017-06-24] MEDS ORDERED: FAMOTIDINE 20MG TAB 20 MG TAB PO SCH (09:00)
[2017-06-24] MEDS ORDERED: ASPIRIN 325 MG TABLET PO SCH ×2 (09:00)
[2017-06-24] MEDS ORDERED: POTA10TA14 PO (10:06)
[2017-06-24] MEDS ORDERED: ACET-2900 PO (10:06)
[2017-06-24] MEDS ORDERED: METO5 PO ×2 (10:06→15:15)
[2017-06-24] MEDS ORDERED: MELA3TAB PO (10:15)
[2017-06-24] MEDS ORDERED: POLY17PO4 PO (10:15)
[2017-06-24] MEDS ORDERED: LACT10SO9 PO (10:15)
[2017-06-24] MEDS ORDERED: MAAL30 PO (10:15)
[2017-06-24] MEDS ORDERED: METO25TA6 PO (10:15)
[2017-06-24] MEDS ORDERED: FURO40TA7 PO (10:15)
[2017-06-24] MEDS ORDERED: IPRA3AMP24 IH (10:57)
[2017-06-24] MEDS ORDERED: SILV45GE TP (11:41)
[2017-06-24] MEDS ORDERED: INSU500V SQ (11:41)
[2017-06-24] MEDS ORDERED: SIME180C46 PO (11:41)
[2017-06-24] MEDS ORDERED: TYL3 PO (11:41)
[2017-06-24] MEDS ORDERED: BUME1TAB17 PO (11:43)
[2017-06-24] MEDS ORDERED: MAG HYDROX PO PRN (12:00)
[2017-06-24] MEDS ORDERED: [UNRECOGNIZED DRUG - OTHER] PO PRN (12:00)
[2017-06-24] MEDS ORDERED: SIMETH PO PRN (12:00)
[2017-06-24] MEDS ORDERED: ETOMIDATE 2 MG/ML 10 ML VIAL IVP ONE (12:00)
[2017-06-24] MEDS ORDERED: AL HYDROX PO PRN (12:00)
[2017-06-24] MEDS: METOCLOPRAMIDE 5 MG TABLET PO SCH ×2 (16:49→19:48)
[2017-06-24] MEDS: POTASSIUM CHLORIDE 20 MEQ ERTAB PO PRN (17:59)
[2017-06-24] MEDS: MAG HYDROX/AL HYDROX/SIMETH ES 30 ML SUSP UDCUP PO PRN (19:04)
[2017-06-24] MEDS: ATORVASTATIN CALCIUM 20 MG TABLET PO SCH (20:34)
[2017-06-25] VITALS (25 sets, daily range): BP systolic 88–122; BP diastolic 41–83
[2017-06-25 04:17] LABS: HEMATOCRIT 26.8 % (42-54); MEAN CORPUSCULAR HEMOGLOBIN 30.3 pg (27.0-33.0); MEAN CORPUSCULAR HGB CONC 34.3 g/dL (32.0-36.0); MEAN CORPUSCULAR VOLUME 88.5 fL (79-99); PLATELET COUNT (AUTO) 269 K/uL (130-400); RED BLOOD CELL COUNT(AUTO) 3.04 MIL/uL (4.50-6.20); RED CELL DISTRIBUTION WIDTH 15.6 % (11.0-15.5); WHITE BLOOD COUNT (AUTO) 12.4 K/uL (4.8-10.8)
[2017-06-25 04:25] LABS: CREATININE 1.3 mg/dL (0.5-1.5); POTASSIUM 3.6 mmol/L (3.5-5.1)
[2017-06-25] MEDS: INSULIN HUMULIN R 100 UNIT/ML 3ML SQ SCH ×4 (06:02→20:45)
[2017-06-25] MEDS: METOCLOPRAMIDE 5 MG TABLET PO SCH ×6 (06:04→21:00)
[2017-06-25] MEDS: POTASSIUM CHLORIDE 20 MEQ ERTAB PO PRN (08:48)
[2017-06-25] MEDS: METOPROLOL TARTRATE 25 MG TAB PO SCH ×2 (08:48→20:29)
[2017-06-25] MEDS: ALLOPURINOL 100 MG TABLET PO SCH (08:49)
[2017-06-25] MEDS: FAMOTIDINE 20MG TAB 20 MG TAB PO SCH (08:49)
[2017-06-25] MEDS: FUROSEMIDE 10 MG/ML 4ML VIAL IVP SCH ×2 (08:49→20:24)
[2017-06-25] MEDS: ASPIRIN 81 MG EC TAB PO SCH (08:49)
[2017-06-25] MEDS: RIVAROXABAN 20 MG TABLET PO SCH (08:49)
[2017-06-25] MEDS: SIMETHICONE 80 MG TAB.CHEW PO SCH ×4 (08:49→20:24)
[2017-06-25] MEDS: DOXAZOSIN MESYLATE 2 MG TABLET PO SCH (08:49)
[2017-06-25] MEDS: POLYETHYLENE GLYCOL 3350 17 GM POWD.PACK PO SCH (09:00)
[2017-06-25] MEDS ORDERED: MELATONIN 6 MG PO PRN (09:00)
[2017-06-25] MEDS: ENOXAPARIN SODIUM 120 MG/0.8ML SQ SCH ×2 (11:52→20:26)
[2017-06-25] MEDS: TRAMADOL HCL 50 MG TABLET PO PRN ×2 (14:08→23:03)
[2017-06-25] MEDS: ATORVASTATIN CALCIUM 20 MG TABLET PO SCH (20:28)
[2017-06-25] MEDS ORDERED: ENOXAPARIN SODIUM 1 MG/KG SQ SCH (21:00)
[2017-06-26] VITALS (20 sets, daily range): BP systolic 89–121; BP diastolic 40–78
[2017-06-26 03:59] LABS: HEMATOCRIT 28.8 % (42-54); MEAN CORPUSCULAR HEMOGLOBIN 28.8 pg (27.0-33.0); MEAN CORPUSCULAR HGB CONC 32.7 g/dL (32.0-36.0); NUCLEATED RED BLOOD CELLS 0.1 % (0.0-0.19); PLATELET COUNT (AUTO) 264 K/uL (130-400); RED BLOOD CELL COUNT(AUTO) 3.27 MIL/uL (4.50-6.20); RED CELL DISTRIBUTION WIDTH 15.8 % (11.0-15.5)
[2017-06-26 04:14] LABS: CREATININE 1.1 mg/dL (0.5-1.5); POTASSIUM 3.6 mmol/L (3.5-5.1)
[2017-06-26 04:24] LABS: B-TYPE NATRIURETIC PEPTIDE 1810 pg/mL (0-100)
[2017-06-26] MEDS: INSULIN HUMULIN R 100 UNIT/ML 3ML SQ SCH ×4 (05:54→21:00)
[2017-06-26] MEDS: METOCLOPRAMIDE 5 MG TABLET PO SCH ×5 (06:11→20:14)
[2017-06-26] MEDS ORDERED: METOLAZONE 2.5 MG TABLET PO SCH (08:15)
[2017-06-26] MEDS: SIMETHICONE 80 MG TAB.CHEW PO SCH ×4 (09:00→20:14)
[2017-06-26] MEDS: POLYETHYLENE GLYCOL 3350 17 GM POWD.PACK PO SCH (09:00)
[2017-06-26] MEDS: FAMOTIDINE 20MG TAB 20 MG TAB PO SCH (09:11)
[2017-06-26] MEDS: METOPROLOL TARTRATE 25 MG TAB PO SCH ×2 (09:11→20:13)
[2017-06-26] MEDS: FUROSEMIDE 10 MG/ML 4ML VIAL IVP SCH ×2 (09:11→20:14)
[2017-06-26] MEDS: ALLOPURINOL 100 MG TABLET PO SCH (09:12)
[2017-06-26] MEDS: ASPIRIN 81 MG EC TAB PO SCH (09:12)
[2017-06-26] MEDS: DOXAZOSIN MESYLATE 2 MG TABLET PO SCH (09:12)
[2017-06-26] MEDS: ATORVASTATIN CALCIUM 20 MG TABLET PO SCH (20:13)
[2017-06-26] MEDS: TRAMADOL HCL 50 MG TABLET PO PRN (20:14)
[2017-06-27] VITALS (14 sets, daily range): BP systolic 97–117; BP diastolic 57–74
[2017-06-27] MEDS: METOCLOPRAMIDE 5 MG TABLET PO SCH ×5 (04:11→21:53)
[2017-06-27 04:41] LABS: HEMATOCRIT 28.2 % (42-54); MEAN CORPUSCULAR HEMOGLOBIN 30.8 pg (27.0-33.0); MEAN CORPUSCULAR HGB CONC 35.3 g/dL (32.0-36.0); MEAN CORPUSCULAR VOLUME 87.1 fL (79-99); PLATELET COUNT (AUTO) 246 K/uL (130-400); RED BLOOD CELL COUNT(AUTO) 3.24 MIL/uL (4.50-6.20); RED CELL DISTRIBUTION WIDTH 15.9 % (11.0-15.5); WHITE BLOOD COUNT (AUTO) 9.6 K/uL (4.8-10.8)
[2017-06-27 04:51] LABS: CREATININE 1.1 mg/dL (0.5-1.5); POTASSIUM 3.1 mmol/L (3.5-5.1)
[2017-06-27] MEDS: INSULIN HUMULIN R 100 UNIT/ML 3ML SQ SCH ×4 (06:33→21:00)
[2017-06-27] MEDS: ALLOPURINOL 100 MG TABLET PO SCH (09:00)
[2017-06-27] MEDS: POLYETHYLENE GLYCOL 3350 17 GM POWD.PACK PO SCH (09:00)
[2017-06-27] MEDS: ASPIRIN 81 MG EC TAB PO SCH (09:00)
[2017-06-27] MEDS: METOPROLOL TARTRATE 25 MG TAB PO SCH ×2 (09:00→21:52)
[2017-06-27] MEDS: SIMETHICONE 80 MG TAB.CHEW PO SCH ×4 (09:00→21:52)
[2017-06-27] MEDS: DOXAZOSIN MESYLATE 2 MG TABLET PO SCH (09:00)
[2017-06-27] MEDS: FAMOTIDINE 20MG TAB 20 MG TAB PO SCH (09:00)
[2017-06-27] MEDS: FUROSEMIDE 10 MG/ML 4ML VIAL IVP SCH (10:10)
[2017-06-27 13:21] LABS: GLUCOSE,BODY FLUID 159 mg/dL (1-40)
[2017-06-27 13:40] LABS: APPEARANCE BODY FLUID CLOUDY (CLEAR); COLOR,BODY FLUID RED (LT YELLOW); SPECIMENTYPE,BODY FLUID THORACENTESIS; TOTAL VOLUME,BODY FLUID 1300 mL
[2017-06-27 13:41] LABS: BODY FLUID RBC 20325 /cu. mm.; BODY FLUID WBC 240 /cu. mm.
[2017-06-27 13:55] LABS: BF LYMPHOCYTE 81 %; BF MESOTHELIAL 11 %; BF MONOCYTE 2 %
[2017-06-27] MEDS: POTASSIUM CHLORIDE 20 MEQ ERTAB PO PRN ×3 (14:10→17:25)
[2017-06-27] MEDS: FUROSEMIDE 40 MG TABLET PO SCH (16:25)
[2017-06-27] MEDS: ATORVASTATIN CALCIUM 20 MG TABLET PO SCH (21:53)
[2017-06-27] MEDS: TRAMADOL HCL 50 MG TABLET PO PRN (21:58)
[2017-06-28 04:00] VITALS: BP 97/59
[2017-06-28 05:00] LABS: HEMATOCRIT 29.1 % (42-54); MEAN CORPUSCULAR HEMOGLOBIN 30.5 pg (27.0-33.0); MEAN CORPUSCULAR HGB CONC 34.8 g/dL (32.0-36.0); MEAN CORPUSCULAR VOLUME 87.5 fL (79-99); PLATELET COUNT (AUTO) 242 K/uL (130-400); RED BLOOD CELL COUNT(AUTO) 3.33 MIL/uL (4.50-6.20); RED CELL DISTRIBUTION WIDTH 15.9 % (11.0-15.5); WHITE BLOOD COUNT (AUTO) 9.8 K/uL (4.8-10.8)
[2017-06-28 05:07] LABS: INR 1.13 (0.85-1.15); PARTIAL THROMBOPLASTIN TIME 30.5 SEC (26.3-35.5); PROTHROMBIN TIME 11.8 SEC (9.6-11.6)
[2017-06-28 05:09] LABS: CREATININE 1.1 mg/dL (0.5-1.5)
[2017-06-28 05:10] LABS: POTASSIUM 2.9 mmol/L (3.5-5.1)
[2017-06-28 05:23] LABS: B-TYPE NATRIURETIC PEPTIDE 1250 pg/mL (0-100)
[2017-06-28] MEDS: METOCLOPRAMIDE 5 MG TABLET PO SCH ×5 (05:43→21:09)
[2017-06-28] MEDS: LIDOCAINE HCL-MPF 1% 2ML VIAL IVP PRN ×2 (05:44→07:54)
[2017-06-28] MEDS: POTASSIUM CHLORIDE 20MEQ/100ML 100 ML IV PRN ×2 (05:44→07:54)
[2017-06-28] MEDS: INSULIN HUMULIN R 100 UNIT/ML 3ML SQ SCH ×4 (05:46→21:11)
[2017-06-28] MEDS: FUROSEMIDE 40 MG TABLET PO SCH ×2 (07:34→15:54)
[2017-06-28 07:49] VITALS: BP 115/62
[2017-06-28] MEDS: POTASSIUM CHLORIDE 20 MEQ ERTAB PO PRN ×3 (07:51→21:40)
[2017-06-28] MEDS ORDERED: SODIUM CHLORIDE 0.9% 500ML 500 ML IV SCH (07:52)
[2017-06-28] MEDS: SIMETHICONE 80 MG TAB.CHEW PO SCH ×4 (08:42→21:08)
[2017-06-28] MEDS: FUROSEMIDE 10 MG/ML 4ML VIAL IV SCH (08:42)
[2017-06-28] MEDS: DOXAZOSIN MESYLATE 2 MG TABLET PO SCH (08:42)
[2017-06-28] MEDS: FAMOTIDINE 20MG TAB 20 MG TAB PO SCH (08:42)
[2017-06-28] MEDS: METOPROLOL TARTRATE 25 MG TAB PO SCH ×2 (08:43→21:09)
[2017-06-28] MEDS: POLYETHYLENE GLYCOL 3350 17 GM POWD.PACK PO SCH (08:43)
[2017-06-28] MEDS: POTASSIUM CHLORIDE 20 MEQ ERTAB PO SCH ×2 (08:43→19:53)
[2017-06-28] MEDS: ALLOPURINOL 100 MG TABLET PO SCH (08:43)
[2017-06-28] MEDS: ASPIRIN 81 MG EC TAB PO SCH (08:43)
[2017-06-28] MEDS: ENOXAPARIN SODIUM 120 MG/0.8ML SQ SCH ×3 (09:00→20:43)
[2017-06-28 11:15] VITALS: BP 102/63
[2017-06-28 16:35] VITALS: BP 101/58
[2017-06-28 18:14] LABS: MAGNESIUM 1.5 mg/dL (1.80-2.40)
[2017-06-28 19:40] VITALS: BP 102/55
[2017-06-28] MEDS: ATORVASTATIN CALCIUM 20 MG TABLET PO SCH (21:08)
[2017-06-28] MEDS: TRAMADOL HCL 50 MG TABLET PO PRN (21:40)
[2017-06-28 23:27] VITALS: BP 111/61
[2017-06-29 03:26] VITALS: BP 91/64
[2017-06-29 04:14] LABS: POTASSIUM 2.9 mmol/L (3.5-5.1)
[2017-06-29] MEDS: POTASSIUM CHLORIDE 20MEQ/100ML 100 ML IV PRN ×2 (04:18→09:31)
[2017-06-29] MEDS: LIDOCAINE HCL-MPF 1% 2ML VIAL IVP PRN ×2 (04:21→09:31)
[2017-06-29] MEDS: INSULIN HUMULIN R 100 UNIT/ML 3ML SQ SCH ×4 (05:55→20:49)
[2017-06-29 07:00] VITALS: BP 100/66
[2017-06-29] MEDS: METOCLOPRAMIDE 5 MG TABLET PO SCH ×5 (07:30→20:46)
[2017-06-29] MEDS: POTASSIUM CHLORIDE 20 MEQ ERTAB PO SCH ×4 (09:00→20:45)
[2017-06-29] MEDS: ENOXAPARIN SODIUM 120 MG/0.8ML SQ SCH ×2 (09:00→20:46)
[2017-06-29] MEDS: FUROSEMIDE 40 MG TABLET PO SCH ×2 (09:00→16:57)
[2017-06-29] MEDS: SIMETHICONE 80 MG TAB.CHEW PO SCH ×4 (09:00→20:46)
[2017-06-29] MEDS: POTASSIUM CHLORIDE 10% ELIXIR 20 MEQ/15 ML UDCUP PO PRN ×3 (09:31→13:07)
[2017-06-29] MEDS: FUROSEMIDE 10 MG/ML 4ML VIAL IV SCH (09:38)
[2017-06-29 11:00] VITALS: BP 101/70
[2017-06-29] MEDS: MAGNESIUM 2GM PREMIX 50ML 50 ML IV SCH (13:05)
[2017-06-29] MEDS ORDERED: NITROGLYCERIN 5 MG/ML 10 ML VIAL IV ONE (15:05)
[2017-06-29] MEDS ORDERED: IOPAMIDOL-370 100 ML VIAL IV ONE (15:05)
[2017-06-29] MEDS ORDERED: BIVALIRUDIN 250 MG/VIAL IV ONE (15:05)
[2017-06-29] MEDS ORDERED: ISOVUE-370 50ML VIAL IV ONE (15:05)
[2017-06-29] MEDS ORDERED: IOPAMIDOL-370 75 ML VIAL IV ONE (15:05)
[2017-06-29] MEDS ORDERED: LIDOCAINE HCL 2% 20ML ONE (15:06)
[2017-06-29] MEDS ORDERED: FUROSEMIDE 10 MG/ML 4ML VIAL IV SCH (15:30)
[2017-06-29 16:00] VITALS: BP 117/64
[2017-06-29] MEDS: POTASSIUM CHLORIDE 20 MEQ ERTAB PO PRN (16:04)
[2017-06-29] MEDS: DOXAZOSIN MESYLATE 2 MG TABLET PO SCH (16:15)
[2017-06-29] MEDS: METOPROLOL TARTRATE 25 MG TAB PO SCH ×2 (16:15→20:45)
[2017-06-29] MEDS: ASPIRIN 81 MG EC TAB PO SCH (16:15)
[2017-06-29] MEDS: ALLOPURINOL 100 MG TABLET PO SCH (16:16)
[2017-06-29] MEDS: POLYETHYLENE GLYCOL 3350 17 GM POWD.PACK PO SCH (16:17)
[2017-06-29] MEDS: FAMOTIDINE 20MG TAB 20 MG TAB PO SCH (16:25)
[2017-06-29 18:39] LABS: MAGNESIUM 1.8 mg/dL (1.80-2.40); POTASSIUM 3.7 mmol/L (3.5-5.1)
[2017-06-29 19:16] VITALS: BP 97/61
[2017-06-29] MEDS ORDERED: ENOXAPARIN SODIUM 120 MG/0.8ML SQ ONE (20:43)
[2017-06-29] MEDS: ATORVASTATIN CALCIUM 20 MG TABLET PO SCH (20:45)
[2017-06-29] MEDS: TRAMADOL HCL 50 MG TABLET PO PRN (20:59)
[2017-06-29 23:33] VITALS: BP 94/62
[2017-06-30 03:06] VITALS: BP 96/73
[2017-06-30 04:45] LABS: POTASSIUM 3.7 mmol/L (3.5-5.1)
[2017-06-30] MEDS: INSULIN HUMULIN R 100 UNIT/ML 3ML SQ SCH ×4 (05:23→21:18)
[2017-06-30] MEDS: FUROSEMIDE 10 MG/ML 4ML VIAL IV SCH ×2 (05:24→16:50)
[2017-06-30 07:00] VITALS: BP 97/54
[2017-06-30] MEDS: METOCLOPRAMIDE 5 MG TABLET PO SCH ×5 (07:30→20:05)
[2017-06-30] MEDS ORDERED: FUROSEMIDE 10 MG/ML 4ML VIAL IV SCH (08:30)
[2017-06-30] MEDS ORDERED: METOPROLOL TARTRATE 25 MG TAB PO SCH (09:00)
[2017-06-30] MEDS: ENOXAPARIN SODIUM 120 MG/0.8ML SQ SCH ×2 (09:00→20:11)
[2017-06-30] MEDS: DOXAZOSIN MESYLATE 2 MG TABLET PO SCH (09:12)
[2017-06-30] MEDS: ASPIRIN 81 MG EC TAB PO SCH (09:12)
[2017-06-30] MEDS: POTASSIUM CHLORIDE 20 MEQ ERTAB PO SCH ×3 (09:13→20:05)
[2017-06-30] MEDS: POTASSIUM CHLORIDE 20 MEQ ERTAB PO PRN ×2 (09:13→11:38)
[2017-06-30] MEDS: SIMETHICONE 80 MG TAB.CHEW PO SCH ×4 (09:14→20:04)
[2017-06-30] MEDS: ALLOPURINOL 100 MG TABLET PO SCH (09:14)
[2017-06-30] MEDS: POLYETHYLENE GLYCOL 3350 17 GM POWD.PACK PO SCH (09:14)
[2017-06-30] MEDS: FAMOTIDINE 20MG TAB 20 MG TAB PO SCH (09:14)
[2017-06-30 11:00] VITALS: BP 99/63
[2017-06-30] MEDS ORDERED: PHARMACY COMMUNICATION MISC SCH (11:45)
[2017-06-30] MEDS: LISINOPRIL 5 MG TABLET PO SCH (13:19)
[2017-06-30] MEDS: SPIRONOLACTONE 25 MG TAB PO SCH (13:19)
[2017-06-30 16:00] VITALS: BP 99/61
[2017-06-30 19:11] VITALS: BP 95/56
[2017-06-30] MEDS: CARVEDILOL 6.25 MG TABLET PO SCH (20:05)
[2017-06-30] MEDS: ATORVASTATIN CALCIUM 20 MG TABLET PO SCH (20:05)
[2017-06-30] MEDS: TRAMADOL HCL 50 MG TABLET PO PRN (20:07)
[2017-06-30] MEDS ORDERED: ENOXAPARIN SODIUM 120 MG/0.8ML SQ ONE (20:10)
[2017-06-30 22:59] VITALS: BP 104/59
[2017-07-01 03:33] VITALS: BP 92/56
[2017-07-01 04:47] LABS: POTASSIUM 3.6 mmol/L (3.5-5.1)
[2017-07-01] MEDS: FUROSEMIDE 10 MG/ML 4ML VIAL IV SCH ×2 (05:58→16:44)
[2017-07-01] MEDS: INSULIN HUMULIN R 100 UNIT/ML 3ML SQ SCH ×4 (06:19→21:32)
[2017-07-01 07:25] VITALS: BP 96/60
[2017-07-01] MEDS: SPIRONOLACTONE 25 MG TAB PO SCH (08:25)
[2017-07-01] MEDS: ASPIRIN 81 MG EC TAB PO SCH (08:25)
[2017-07-01] MEDS: FAMOTIDINE 20MG TAB 20 MG TAB PO SCH (08:25)
[2017-07-01] MEDS: METOCLOPRAMIDE 5 MG TABLET PO SCH ×4 (08:25→20:41)
[2017-07-01] MEDS: ALLOPURINOL 100 MG TABLET PO SCH (08:25)
[2017-07-01] MEDS: CARVEDILOL 6.25 MG TABLET PO SCH ×2 (08:26→20:40)
[2017-07-01] MEDS: LISINOPRIL 5 MG TABLET PO SCH (08:26)
[2017-07-01] MEDS: POTASSIUM CHLORIDE 20 MEQ ERTAB PO SCH ×2 (08:27→20:41)
[2017-07-01] MEDS: POLYETHYLENE GLYCOL 3350 17 GM POWD.PACK PO SCH (08:27)
[2017-07-01] MEDS: POTASSIUM CHLORIDE 20 MEQ ERTAB PO PRN ×2 (08:27→11:55)
[2017-07-01] MEDS: SIMETHICONE 80 MG TAB.CHEW PO SCH ×4 (08:31→20:43)
[2017-07-01] MEDS: ENOXAPARIN SODIUM 120 MG/0.8ML SQ SCH ×3 (08:35→20:42)
[2017-07-01] MEDS ORDERED: FUROSEMIDE 10 MG/ML 4ML VIAL IV SCH ×2 (08:45→10:00)
[2017-07-01] MEDS: CLOPIDOGREL BISULFATE 75 MG TAB PO SCH ×2 (09:42→10:00)
[2017-07-01 11:35] VITALS: BP 95/60
[2017-07-01 16:34] VITALS: BP 97/65
[2017-07-01] MEDS: FUROSEMIDE 40 MG TABLET PO SCH ×2 (17:00→17:06)
[2017-07-01 19:16] VITALS: BP 99/57
[2017-07-01] MEDS: ATORVASTATIN CALCIUM 20 MG TABLET PO SCH (20:40)
[2017-07-01] MEDS: TRAMADOL HCL 50 MG TABLET PO PRN (20:47)
[2017-07-01 23:30] VITALS: BP 96/59
[2017-07-02] VITALS (21 sets, daily range): BP systolic 94–113; BP diastolic 57–72
[2017-07-02] MEDS: FUROSEMIDE 10 MG/ML 4ML VIAL IV SCH ×2 (04:36→18:16)
[2017-07-02 04:45] LABS: CREATININE 0.9 mg/dL (0.5-1.5); MAGNESIUM 1.7 mg/dL (1.80-2.40); POTASSIUM 3.6 mmol/L (3.5-5.1)
[2017-07-02] MEDS: POTASSIUM CHLORIDE 20 MEQ ERTAB PO SCH ×2 (05:48→21:57)
[2017-07-02] MEDS: MAGNESIUM 2GM PREMIX 50ML 50 ML IV SCH ×2 (05:49→15:38)
[2017-07-02] MEDS: METOCLOPRAMIDE 5 MG TABLET PO SCH ×4 (06:23→21:00)
[2017-07-02] MEDS: INSULIN HUMULIN R 100 UNIT/ML 3ML SQ SCH ×4 (06:23→21:00)
[2017-07-02 06:28] LABS: INR 1.06 (0.85-1.15); PARTIAL THROMBOPLASTIN TIME 24.6 SEC (26.3-35.5); PROTHROMBIN TIME 11.1 SEC (9.6-11.6)
[2017-07-02] MEDS: ENOXAPARIN SODIUM 120 MG/0.8ML SQ SCH (08:32)
[2017-07-02] MEDS: SIMETHICONE 80 MG TAB.CHEW PO SCH ×4 (08:54→21:57)
[2017-07-02] MEDS: ALLOPURINOL 100 MG TABLET PO SCH (08:54)
[2017-07-02] MEDS: ASPIRIN 81 MG EC TAB PO SCH (08:54)
[2017-07-02] MEDS: POLYETHYLENE GLYCOL 3350 17 GM POWD.PACK PO SCH (08:54)
[2017-07-02] MEDS: FAMOTIDINE 20MG TAB 20 MG TAB PO SCH (09:00)
[2017-07-02] MEDS: LISINOPRIL 5 MG TABLET PO SCH (09:09)
[2017-07-02] MEDS: SPIRONOLACTONE 25 MG TAB PO SCH (09:09)
[2017-07-02] MEDS: CARVEDILOL 6.25 MG TABLET PO SCH ×2 (09:09→21:58)
[2017-07-02] MEDS ORDERED: LIDOCAINE HCL 2% 20ML ONE (10:00)
[2017-07-02] MEDS ORDERED: ISOVUE-370 50ML VIAL IV ONE (10:00)
[2017-07-02] MEDS ORDERED: IOPAMIDOL-370 100 ML VIAL IV ONE (10:00)
[2017-07-02] MEDS ORDERED: HEPARIN SODIUM 1000UNIT/ML 10ML VIAL ONE (10:00)
[2017-07-02] MEDS ORDERED: HEPARIN 25000 UNITS/250 ML D5W 250 ML IV ONE (11:15)
[2017-07-02] MEDS ORDERED: EPTIFIBATIDE 2 MG/ML 10 ML VIAL IVP ONE (11:24)
[2017-07-02] MEDS ORDERED: EPTIFIBATIDE 75MG/100ML BOTTLE 100 ML IV ONE ×2 (11:24→16:40)
[2017-07-02 11:43] LABS: BASOPHILS % (AUTO) 1.4 % (0.0-5.0); EOSINOPHILS % (AUTO) 3.1 % (0.0-8.0); HEMATOCRIT 30.3 % (42-54); LYMPHOCYTES % (AUTO) 10.8 % (21.0-51.0); MEAN CORPUSCULAR HEMOGLOBIN 30.1 pg (27.0-33.0); MEAN CORPUSCULAR HGB CONC 34.3 g/dL (32.0-36.0); MEAN CORPUSCULAR VOLUME 87.7 fL (79-99); NEUTROPHILS % (AUTO) 74.7 % (40.0-77.0); NUCLEATED RED BLOOD CELLS 0.1 % (0.0-0.19); PLATELET COUNT (AUTO) 178 K/uL (130-400); RED BLOOD CELL COUNT(AUTO) 3.46 MIL/uL (4.50-6.20); RED CELL DISTRIBUTION WIDTH 15.9 % (11.0-15.5); WHITE BLOOD COUNT (AUTO) 10.1 K/uL (4.8-10.8)
[2017-07-02] MEDS ORDERED: ALBUMIN (HUMAN) 5% 250 ML IV ONE (13:54)
[2017-07-02] MEDS: TRAMADOL HCL 50 MG TABLET PO PRN (16:41)
[2017-07-02] MEDS ORDERED: HEPARIN 25000 UNITS/250 ML D5W 250 ML IV PRN (20:45)
[2017-07-02] MEDS: ATORVASTATIN CALCIUM 20 MG TABLET PO SCH (21:57)
[2017-07-02] MEDS: EPTIFIBATIDE 75MG/100ML BOTTLE 100 ML IV SCH (22:02)
[2017-07-03] VITALS (22 sets, daily range): BP systolic 91–117; BP diastolic 56–77
[2017-07-03] MEDS: POTASSIUM CHLORIDE 20 MEQ ERTAB PO PRN ×2 (00:22→02:26)
[2017-07-03] MEDS: TRAMADOL HCL 50 MG TABLET PO PRN ×2 (01:13→10:04)
[2017-07-03] MEDS: MAG HYDROX/AL HYDROX/SIMETH ES 30 ML SUSP UDCUP PO PRN (01:13)
[2017-07-03 02:20] LABS: POTASSIUM 3.8 mmol/L (3.5-5.1)
[2017-07-03] MEDS: EPTIFIBATIDE 75MG/100ML BOTTLE 100 ML IV SCH (02:32)
[2017-07-03] MEDS: FUROSEMIDE 10 MG/ML 4ML VIAL IV SCH ×2 (05:16→17:00)
[2017-07-03] MEDS: INSULIN HUMULIN R 100 UNIT/ML 3ML SQ SCH ×4 (05:36→21:00)
[2017-07-03] MEDS: METOCLOPRAMIDE 5 MG TABLET PO SCH ×4 (05:37→21:37)
[2017-07-03] MEDS: ASPIRIN 81 MG EC TAB PO SCH ×2 (09:00→10:05)
[2017-07-03] MEDS: POTASSIUM CHLORIDE 20 MEQ ERTAB PO SCH ×2 (09:00→21:39)
[2017-07-03] MEDS: POLYETHYLENE GLYCOL 3350 17 GM POWD.PACK PO SCH (09:00)
[2017-07-03 09:29] LABS: BASOPHILS % (AUTO) 0.9 % (0.0-5.0); HEMATOCRIT 30.2 % (42-54); LYMPHOCYTES % (AUTO) 10.1 % (21.0-51.0); MEAN CORPUSCULAR HEMOGLOBIN 30.3 pg (27.0-33.0); MEAN CORPUSCULAR VOLUME 86.8 fL (79-99); PLATELET COUNT (AUTO) 158 K/uL (130-400); RED BLOOD CELL COUNT(AUTO) 3.48 MIL/uL (4.50-6.20); RED CELL DISTRIBUTION WIDTH 16.2 % (11.0-15.5)
[2017-07-03] MEDS: SPIRONOLACTONE 25 MG TAB PO SCH (10:03)
[2017-07-03] MEDS: SIMETHICONE 80 MG TAB.CHEW PO SCH ×4 (10:03→21:36)
[2017-07-03] MEDS: FAMOTIDINE 20MG TAB 20 MG TAB PO SCH (10:03)
[2017-07-03] MEDS: CLOPIDOGREL BISULFATE 75 MG TAB PO SCH ×2 (10:03→16:50)
[2017-07-03] MEDS: ALLOPURINOL 100 MG TABLET PO SCH (10:04)
[2017-07-03] MEDS: CARVEDILOL 6.25 MG TABLET PO SCH ×2 (10:04→21:38)
[2017-07-03] MEDS: LISINOPRIL 5 MG TABLET PO SCH (10:05)
[2017-07-03] MEDS ORDERED: VANCOMYCIN 1GM+NS 250ML 250 ML IV PRN (13:45)
[2017-07-03] MEDS: ATORVASTATIN CALCIUM 20 MG TABLET PO SCH (21:37)
[2017-07-04] VITALS (20 sets, daily range): BP systolic 70–117; BP diastolic 41–88
[2017-07-04 03:56] LABS: BASOPHILS % (AUTO) 0.7 % (0.0-5.0); EOSINOPHILS % (AUTO) 2.9 % (0.0-8.0); HEMATOCRIT 30.5 % (42-54); LYMPHOCYTES % (AUTO) 13.3 % (21.0-51.0); MEAN CORPUSCULAR HGB CONC 34.2 g/dL (32.0-36.0); MEAN CORPUSCULAR VOLUME 87.7 fL (79-99); MONOCYTES % (AUTO) 12.2 % (3.0-13.0); NEUTROPHILS % (AUTO) 70.9 % (40.0-77.0); RED BLOOD CELL COUNT(AUTO) 3.48 MIL/uL (4.50-6.20); RED CELL DISTRIBUTION WIDTH 16.3 % (11.0-15.5)
[2017-07-04 04:05] LABS: INR 1.06 (0.85-1.15); PROTHROMBIN TIME 11.1 SEC (9.6-11.6)
[2017-07-04 04:07] LABS: POTASSIUM 3.9 mmol/L (3.5-5.1)
[2017-07-04 04:19] LABS: B-TYPE NATRIURETIC PEPTIDE 609 pg/mL (0-100)
[2017-07-04 04:23] LABS: PLATELET COUNT (AUTO) 152 K/uL (130-400)
[2017-07-04] MEDS: METOCLOPRAMIDE 5 MG TABLET PO SCH ×4 (04:40→20:45)
[2017-07-04] MEDS: FUROSEMIDE 10 MG/ML 4ML VIAL IV SCH ×2 (04:59→18:09)
[2017-07-04] MEDS: INSULIN HUMULIN R 100 UNIT/ML 3ML SQ SCH ×4 (05:01→20:47)
[2017-07-04] MEDS: POLYETHYLENE GLYCOL 3350 17 GM POWD.PACK PO SCH (08:45)
[2017-07-04] MEDS: LISINOPRIL 5 MG TABLET PO SCH (08:46)
[2017-07-04] MEDS: SIMETHICONE 80 MG TAB.CHEW PO SCH ×4 (08:47→20:47)
[2017-07-04] MEDS: ASPIRIN 81 MG EC TAB PO SCH (08:47)
[2017-07-04] MEDS: CARVEDILOL 6.25 MG TABLET PO SCH ×2 (08:49→20:46)
[2017-07-04] MEDS: SPIRONOLACTONE 25 MG TAB PO SCH (08:49)
[2017-07-04] MEDS: FAMOTIDINE 20MG TAB 20 MG TAB PO SCH (08:50)
[2017-07-04] MEDS: POTASSIUM CHLORIDE 20 MEQ ERTAB PO SCH ×2 (08:50→20:45)
[2017-07-04] MEDS: CLOPIDOGREL BISULFATE 75 MG TAB PO SCH (08:50)
[2017-07-04 11:53] LABS: BILIRUBIN,URINE Small (NEGATIVE); GLUCOSE, URINE (UA) Negative (NEGATIVE); KETONES,URINE Negative (NEGATIVE); LEUKOCYTE ESTERASE ,URINE Small (NEGATIVE); NITRATE,URINE Negative (NEGATIVE); OCCULT BLOOD,URINE Moderate (NEGATIVE); PH,URINE 6.5 (5.0-8.0); PROTEIN,URINE POS 1+ (NEGATIVE)
[2017-07-04 11:55] LABS: COLOR,URINE Red (YELLOW)
[2017-07-04 11:56] LABS: APPEARANCE,URINE TURBID (CLEAR)
[2017-07-04 12:00] LABS: RBC,URINE TNTC /HPF (0-1); WBC,URINE 0-1 /HPF (0-1)
[2017-07-04 12:01] LABS: BACTERIA,URINE Rare /HPF (None Seen); SQUAMOUS EPITHELIAL CELL,UR 0-2 /HPF (0-2)
[2017-07-04] MEDS: ALLOPURINOL 100 MG TABLET PO SCH (14:18)
[2017-07-04] MEDS: ATORVASTATIN CALCIUM 20 MG TABLET PO SCH (20:46)
[2017-07-04] MEDS: TICAGRELOR 90 MG TABLET PO SCH (20:46)
[2017-07-04] MEDS: TRAMADOL HCL 50 MG TABLET PO PRN (20:53)
[2017-07-05] VITALS (24 sets, daily range): BP systolic 83–123; BP diastolic 42–76
[2017-07-05 03:58] LABS: POTASSIUM 3.7 mmol/L (3.5-5.1)
[2017-07-05] MEDS: FUROSEMIDE 10 MG/ML 4ML VIAL IV SCH (05:46)
[2017-07-05] MEDS: INSULIN HUMULIN R 100 UNIT/ML 3ML SQ SCH ×4 (06:23→20:41)
[2017-07-05] MEDS: METOCLOPRAMIDE 5 MG TABLET PO SCH ×5 (06:34→21:00)
[2017-07-05 08:20] LABS: MEAN CORPUSCULAR HEMOGLOBIN 28.9 pg (27.0-33.0); MEAN CORPUSCULAR HGB CONC 33.3 g/dL (32.0-36.0); NUCLEATED RED BLOOD CELLS 0.1 % (0.0-0.19); PLATELET COUNT (AUTO) 143 K/uL (130-400); RED BLOOD CELL COUNT(AUTO) 3.34 MIL/uL (4.50-6.20); RED CELL DISTRIBUTION WIDTH 16.2 % (11.0-15.5); WHITE BLOOD COUNT (AUTO) 10.3 K/uL (4.8-10.8)
[2017-07-05] MEDS ORDERED: AMIODARONE HCL 900 MG in DEXTROSE 5%-WATER 500 ML IV SCH (08:30)
[2017-07-05] MEDS ORDERED: AMIODARONE HCL 150 MG in DEXTROSE 5%-WATER 100 ML IV SCH (08:30)
[2017-07-05] MEDS: POTASSIUM CHLORIDE 20 MEQ ERTAB PO PRN (08:41)
[2017-07-05] MEDS: POTASSIUM CHLORIDE 20 MEQ ERTAB PO SCH ×3 (08:41→21:04)
[2017-07-05] MEDS: SPIRONOLACTONE 25 MG TAB PO SCH (08:42)
[2017-07-05] MEDS: FAMOTIDINE 20MG TAB 20 MG TAB PO SCH (08:43)
[2017-07-05] MEDS: TICAGRELOR 90 MG TABLET PO SCH ×2 (08:43→21:05)
[2017-07-05] MEDS: ALLOPURINOL 100 MG TABLET PO SCH (08:43)
[2017-07-05] MEDS: LISINOPRIL 5 MG TABLET PO SCH (08:44)
[2017-07-05] MEDS: CARVEDILOL 6.25 MG TABLET PO SCH ×2 (08:44→21:05)
[2017-07-05] MEDS: SIMETHICONE 80 MG TAB.CHEW PO SCH ×4 (08:44→21:04)
[2017-07-05] MEDS: POLYETHYLENE GLYCOL 3350 17 GM POWD.PACK PO SCH (08:45)
[2017-07-05] MEDS: MAGNESIUM 2GM PREMIX 50ML 50 ML IV SCH (08:49)
[2017-07-05] MEDS ORDERED: FUROSEMIDE 40 MG TABLET ONE ×2 (08:52→18:06)
[2017-07-05] MEDS: ASPIRIN 81 MG EC TAB PO SCH (08:53)
[2017-07-05] MEDS: FUROSEMIDE 40 MG TABLET PO SCH ×2 (08:53→18:08)
[2017-07-05 08:59] LABS: BASOPHILS % (MANUAL) 1 % (0-2); EOSINOPHILS % (MANUAL) 1 % (1-6); LYMPHOCYTES % (MANUAL) 13 % (22-44); MAN.DIFF COMMENT-IMPRESSION MANUAL DIFFERENTIAL; MONOCYTES % (MANUAL) 11 % (2-9); SEGMENTED NEUTROPHILS % 74 % (40-70)
[2017-07-05 09:00] LABS: PLATELET MORPHOLOGY COMMENT ADEQUATE
[2017-07-05] MEDS: ATORVASTATIN CALCIUM 20 MG TABLET PO SCH (21:04)
[2017-07-05] MEDS: TRAMADOL HCL 50 MG TABLET PO PRN (23:44)
[2017-07-06] VITALS (21 sets, daily range): BP systolic 90–111; BP diastolic 55–77
[2017-07-06 04:05] LABS: HEMATOCRIT 30.5 % (42-54); MEAN CORPUSCULAR HEMOGLOBIN 28.9 pg (27.0-33.0); MEAN CORPUSCULAR HGB CONC 33.2 g/dL (32.0-36.0); MEAN CORPUSCULAR VOLUME 86.9 fL (79-99); PLATELET COUNT (AUTO) 138 K/uL (130-400); RED BLOOD CELL COUNT(AUTO) 3.52 MIL/uL (4.50-6.20); RED CELL DISTRIBUTION WIDTH 16.4 % (11.0-15.5); WHITE BLOOD COUNT (AUTO) 15.8 K/uL (4.8-10.8)
[2017-07-06 04:27] LABS: MAGNESIUM 1.8 mg/dL (1.80-2.40); POTASSIUM 3.6 mmol/L (3.5-5.1)
[2017-07-06] MEDS: INSULIN HUMULIN R 100 UNIT/ML 3ML SQ SCH ×4 (05:16→21:00)
[2017-07-06] MEDS: METOCLOPRAMIDE 5 MG TABLET PO SCH ×4 (06:21→21:47)
[2017-07-06] MEDS ORDERED: CEFTRIAXONE 1GM/D5W 50ML 50 ML IV SCH (07:15)
[2017-07-06] MEDS: POTASSIUM CHLORIDE 20 MEQ ERTAB PO PRN ×2 (07:27→08:44)
[2017-07-06] MEDS: MAGNESIUM 2GM PREMIX 50ML 50 ML IV SCH (07:28)
[2017-07-06] MEDS ORDERED: CEFTRIAXONE SODIUM 1 GM IVP SCH ×2 (07:30→09:00)
[2017-07-06] MEDS: ALLOPURINOL 100 MG TABLET PO SCH (08:36)
[2017-07-06] MEDS: SPIRONOLACTONE 25 MG TAB PO SCH (08:36)
[2017-07-06] MEDS: LISINOPRIL 5 MG TABLET PO SCH (08:37)
[2017-07-06] MEDS: CARVEDILOL 6.25 MG TABLET PO SCH ×2 (08:38→21:48)
[2017-07-06] MEDS: SIMETHICONE 80 MG TAB.CHEW PO SCH ×4 (08:38→21:47)
[2017-07-06] MEDS: FAMOTIDINE 20MG TAB 20 MG TAB PO SCH (08:38)
[2017-07-06] MEDS: POTASSIUM CHLORIDE 20 MEQ ERTAB PO SCH ×3 (08:40→21:47)
[2017-07-06] MEDS: POLYETHYLENE GLYCOL 3350 17 GM POWD.PACK PO SCH (08:41)
[2017-07-06] MEDS: TICAGRELOR 90 MG TABLET PO SCH ×2 (08:43→21:47)
[2017-07-06] MEDS: RIVAROXABAN 20 MG TABLET PO SCH (08:43)
[2017-07-06] MEDS ORDERED: FUROSEMIDE 20 MG TABLET ONE (08:45)
[2017-07-06] MEDS: FUROSEMIDE 40 MG TABLET PO SCH ×2 (08:53→16:33)
[2017-07-06] MEDS ORDERED: APIXABAN 5 MG TABLET PO SCH (09:00)
[2017-07-06] MEDS: TRAMADOL HCL 50 MG TABLET PO PRN (10:47)
[2017-07-06 15:54] LABS: APPEARANCE,URINE TURBID (CLEAR); BILIRUBIN,URINE NEGATIVE (NEGATIVE); COLOR,URINE RED (YELLOW); GLUCOSE, URINE (UA) NEGATIVE (NEGATIVE); KETONES,URINE NEGATIVE (NEGATIVE); LEUKOCYTE ESTERASE ,URINE TRACE (NEGATIVE); NITRATE,URINE NEGATIVE (NEGATIVE); OCCULT BLOOD,URINE LARGE (NEGATIVE); PH,URINE 7.5 (5.0-8.0); PROTEIN,URINE 100 (NEGATIVE)
[2017-07-06 15:55] LABS: RBC,URINE TNTC /HPF (0-1)
[2017-07-06 15:56] LABS: BACTERIA,URINE Rare /HPF (None Seen); SQUAMOUS EPITHELIAL CELL,UR None Seen /HPF (0-2)
[2017-07-06] MEDS: ATORVASTATIN CALCIUM 20 MG TABLET PO SCH (21:47)
[2017-07-06] MEDS: AMIODARONE HCL 200 MG TABLET PO SCH (21:47)
[2017-07-07 03:44] VITALS: BP 95/61
[2017-07-07 04:41] LABS: CREATININE 1.1 mg/dL (0.5-1.5); POTASSIUM 3.9 mmol/L (3.5-5.1)
[2017-07-07 04:43] LABS: HEMATOCRIT 29.3 % (42-54); MEAN CORPUSCULAR HEMOGLOBIN 29.9 pg (27.0-33.0); MEAN CORPUSCULAR HGB CONC 34.6 g/dL (32.0-36.0); MEAN CORPUSCULAR VOLUME 86.4 fL (79-99); PLATELET COUNT (AUTO) 124 K/uL (130-400); RED CELL DISTRIBUTION WIDTH 16.8 % (11.0-15.5)
[2017-07-07] MEDS: INSULIN HUMULIN R 100 UNIT/ML 3ML SQ SCH ×5 (05:37→22:13)
[2017-07-07] MEDS: METOCLOPRAMIDE 5 MG TABLET PO SCH ×4 (06:29→20:41)
[2017-07-07 07:00] VITALS: BP_SYST 93; BP_SYST 95; BP_DIAS 47; BP_DIAS 64
[2017-07-07] MEDS: POLYETHYLENE GLYCOL 3350 17 GM POWD.PACK PO SCH (08:33)
[2017-07-07] MEDS: ALLOPURINOL 100 MG TABLET PO SCH (08:34)
[2017-07-07] MEDS: LISINOPRIL 5 MG TABLET PO SCH (08:34)
[2017-07-07] MEDS: AMIODARONE HCL 200 MG TABLET PO SCH ×2 (08:34→20:43)
[2017-07-07] MEDS: FAMOTIDINE 20MG TAB 20 MG TAB PO SCH (08:34)
[2017-07-07] MEDS: FUROSEMIDE 40 MG TABLET PO SCH ×2 (08:34→17:02)
[2017-07-07] MEDS: POTASSIUM CHLORIDE 20 MEQ ERTAB PO SCH ×3 (08:52→20:42)
[2017-07-07] MEDS: SIMETHICONE 80 MG TAB.CHEW PO SCH ×4 (08:52→20:43)
[2017-07-07] MEDS: SPIRONOLACTONE 25 MG TAB PO SCH (08:53)
[2017-07-07] MEDS: CARVEDILOL 6.25 MG TABLET PO SCH ×2 (08:53→20:42)
[2017-07-07] MEDS: CEFTRIAXONE SODIUM 1 GM IVP SCH (08:53)
[2017-07-07] MEDS: RIVAROXABAN 20 MG TABLET PO SCH (09:00)
[2017-07-07] MEDS: TICAGRELOR 90 MG TABLET PO SCH ×2 (09:00→20:43)
[2017-07-07 16:00] VITALS: BP 97/61
[2017-07-07 19:28] VITALS: BP 104/59
[2017-07-07] MEDS: ATORVASTATIN CALCIUM 20 MG TABLET PO SCH (20:43)
[2017-07-07] MEDS: TRAMADOL HCL 50 MG TABLET PO PRN (20:51)
[2017-07-07 23:22] VITALS: BP 94/44
[2017-07-08 03:40] VITALS: BP 94/63
[2017-07-08 05:16] LABS: HEMATOCRIT 29.1 % (42-54); MEAN CORPUSCULAR HEMOGLOBIN 28.7 pg (27.0-33.0); MEAN CORPUSCULAR HGB CONC 32.8 g/dL (32.0-36.0); MEAN CORPUSCULAR VOLUME 87.7 fL (79-99); PLATELET COUNT (AUTO) 121 K/uL (130-400); RED BLOOD CELL COUNT(AUTO) 3.32 MIL/uL (4.50-6.20); RED CELL DISTRIBUTION WIDTH 16.5 % (11.0-15.5); WHITE BLOOD COUNT (AUTO) 14.1 K/uL (4.8-10.8)
[2017-07-08 05:23] LABS: CREATININE 1.2 mg/dL (0.5-1.5); MAGNESIUM 1.7 mg/dL (1.80-2.40)
[2017-07-08] MEDS: METOCLOPRAMIDE 5 MG TABLET PO SCH ×4 (06:12→20:47)
[2017-07-08] MEDS: INSULIN HUMULIN R 100 UNIT/ML 3ML SQ SCH ×4 (06:14→20:49)
[2017-07-08 07:00] VITALS: BP 95/56
[2017-07-08] MEDS: RIVAROXABAN 20 MG TABLET PO SCH (08:19)
[2017-07-08] MEDS: ALLOPURINOL 100 MG TABLET PO SCH (08:19)
[2017-07-08] MEDS: SPIRONOLACTONE 25 MG TAB PO SCH (08:19)
[2017-07-08] MEDS: AMIODARONE HCL 200 MG TABLET PO SCH ×2 (08:19→20:48)
[2017-07-08] MEDS: LISINOPRIL 5 MG TABLET PO SCH (08:20)
[2017-07-08] MEDS: CARVEDILOL 6.25 MG TABLET PO SCH ×2 (08:20→20:48)
[2017-07-08] MEDS: FAMOTIDINE 20MG TAB 20 MG TAB PO SCH (08:20)
[2017-07-08] MEDS: CEFTRIAXONE SODIUM 1 GM IVP SCH (08:21)
[2017-07-08] MEDS: FUROSEMIDE 10 MG/ML 4ML VIAL IV SCH ×2 (08:21→17:50)
[2017-07-08] MEDS: FUROSEMIDE 40 MG TABLET PO SCH ×2 (08:22→17:00)
[2017-07-08] MEDS: POTASSIUM CHLORIDE 20 MEQ ERTAB PO SCH ×3 (08:23→20:47)
[2017-07-08] MEDS: POLYETHYLENE GLYCOL 3350 17 GM POWD.PACK PO SCH (08:23)
[2017-07-08] MEDS: SIMETHICONE 80 MG TAB.CHEW PO SCH ×4 (08:32→20:48)
[2017-07-08] MEDS: TICAGRELOR 90 MG TABLET PO SCH ×2 (09:56→20:48)
[2017-07-08 11:00] VITALS: BP 90/60
[2017-07-08] MEDS ORDERED: LOPERAMIDE HCL 2 MG CAP PO PRN (13:45)
[2017-07-08] MEDS: TRAMADOL HCL 50 MG TABLET PO PRN (15:04)
[2017-07-08 16:00] VITALS: BP 107/71
[2017-07-08] MEDS ORDERED: TAMSULOSIN HCL 0.4 MG CAP.ER.24H PO SCH (17:45)
[2017-07-08 19:27] VITALS: BP 108/58
[2017-07-08] MEDS: ATORVASTATIN CALCIUM 20 MG TABLET PO SCH (20:48)
[2017-07-08 23:49] VITALS: BP 101/61
[2017-07-09 04:00] VITALS: BP 88/63
[2017-07-09 04:26] LABS: HEMATOCRIT 30.7 % (42-54); MEAN CORPUSCULAR HEMOGLOBIN 29.4 pg (27.0-33.0); MEAN CORPUSCULAR HGB CONC 33.3 g/dL (32.0-36.0); MEAN CORPUSCULAR VOLUME 88.3 fL (79-99); PLATELET COUNT (AUTO) 134 K/uL (130-400); RED BLOOD CELL COUNT(AUTO) 3.48 MIL/uL (4.50-6.20); RED CELL DISTRIBUTION WIDTH 16.7 % (11.0-15.5); WHITE BLOOD COUNT (AUTO) 11.9 K/uL (4.8-10.8)
[2017-07-09 04:43] LABS: ALBUMIN 2.5 g/dL (3.5-5.0); BILIRUBIN,DIRECT 0.3 mg/dL (0.0-0.3); BILIRUBIN,TOTAL 0.8 mg/dL (0.2-1.0); CREATININE 1.1 mg/dL (0.5-1.5); MAGNESIUM 1.6 mg/dL (1.80-2.40); POTASSIUM 3.9 mmol/L (3.5-5.1); TOTAL PROTEIN, SERUM 6.3 g/dL (6.0-8.3)
[2017-07-09 04:58] LABS: BAND NEUTROPHILS % (MANUAL) 1 % (0-2); EOSINOPHILS % (MANUAL) 2 % (1-6); LYMPHOCYTES % (MANUAL) 11 % (22-44); MONOCYTES % (MANUAL) 14 % (2-9); SEGMENTED NEUTROPHILS % 72 % (40-70)
[2017-07-09 04:59] LABS: MAN.DIFF COMMENT-IMPRESSION MANUAL DIFFERENTIAL; PLATELET MORPHOLOGY COMMENT ADEQUATE
[2017-07-09] MEDS: MAGNESIUM 2GM PREMIX 50ML 50 ML IV SCH (05:00)
[2017-07-09] MEDS: TRAMADOL HCL 50 MG TABLET PO PRN ×2 (05:47→22:11)
[2017-07-09 05:55] VITALS: BP 93/54
[2017-07-09] MEDS: INSULIN HUMULIN R 100 UNIT/ML 3ML SQ SCH ×4 (06:16→21:00)
[2017-07-09] MEDS: FUROSEMIDE 10 MG/ML 4ML VIAL IV SCH ×3 (06:16→18:21)
[2017-07-09] MEDS: METOCLOPRAMIDE 5 MG TABLET PO SCH ×2 (07:02→07:04)
[2017-07-09 07:52] VITALS: BP 98/54
[2017-07-09] MEDS: FUROSEMIDE 40 MG TABLET PO SCH ×2 (09:00→16:47)
[2017-07-09] MEDS: TAMSULOSIN HCL 0.4 MG CAP.ER.24H PO SCH (09:56)
[2017-07-09] MEDS: SPIRONOLACTONE 25 MG TAB PO SCH (09:57)
[2017-07-09] MEDS: POTASSIUM CHLORIDE 20 MEQ ERTAB PO SCH ×3 (09:57→22:04)
[2017-07-09] MEDS: ALLOPURINOL 100 MG TABLET PO SCH (09:58)
[2017-07-09] MEDS: AMIODARONE HCL 200 MG TABLET PO SCH ×2 (09:58→21:59)
[2017-07-09] MEDS: FAMOTIDINE 20MG TAB 20 MG TAB PO SCH (09:58)
[2017-07-09] MEDS: CARVEDILOL 6.25 MG TABLET PO SCH ×2 (09:58→22:00)
[2017-07-09] MEDS: RIVAROXABAN 20 MG TABLET PO SCH (09:58)
[2017-07-09] MEDS: TICAGRELOR 90 MG TABLET PO SCH ×2 (09:58→22:03)
[2017-07-09] MEDS: CEFTRIAXONE SODIUM 1 GM IVP SCH (09:59)
[2017-07-09] MEDS: LISINOPRIL 5 MG TABLET PO SCH (09:59)
[2017-07-09 11:46] VITALS: BP 94/64
[2017-07-09 16:44] VITALS: BP 92/60
[2017-07-09 20:16] VITALS: BP 93/60
[2017-07-09] MEDS: ATORVASTATIN CALCIUM 20 MG TABLET PO SCH (21:59)
[2017-07-10 01:21] VITALS: BP 84/51
[2017-07-10 03:59] VITALS: BP 90/57
[2017-07-10 04:40] LABS: CREATININE 1.1 mg/dL (0.5-1.5); POTASSIUM 4.2 mmol/L (3.5-5.1)
[2017-07-10] MEDS: FUROSEMIDE 10 MG/ML 4ML VIAL IV SCH ×2 (06:34→18:24)
[2017-07-10] MEDS: INSULIN HUMULIN R 100 UNIT/ML 3ML SQ SCH ×4 (07:30→21:00)
[2017-07-10 07:58] VITALS: BP 93/44
[2017-07-10] MEDS: AMIODARONE HCL 200 MG TABLET PO SCH ×2 (08:45→21:11)
[2017-07-10] MEDS: CARVEDILOL 6.25 MG TABLET PO SCH ×2 (08:46→21:12)
[2017-07-10] MEDS: SPIRONOLACTONE 25 MG TAB PO SCH (08:46)
[2017-07-10] MEDS: FAMOTIDINE 20MG TAB 20 MG TAB PO SCH (08:46)
[2017-07-10] MEDS: ALLOPURINOL 100 MG TABLET PO SCH (08:46)
[2017-07-10] MEDS: TAMSULOSIN HCL 0.4 MG CAP.ER.24H PO SCH (08:47)
[2017-07-10] MEDS: LISINOPRIL 5 MG TABLET PO SCH (08:47)
[2017-07-10] MEDS: POTASSIUM CHLORIDE 20 MEQ ERTAB PO SCH ×3 (08:48→21:12)
[2017-07-10] MEDS: FUROSEMIDE 40 MG TABLET PO SCH ×3 (09:00→16:37)
[2017-07-10] MEDS ORDERED: AMPICILLIN TRIHYDRATE PO SCH (09:00)
[2017-07-10] MEDS ORDERED: AMOXICILLIN 250 MG CAPSULE PO SCH (09:15)
[2017-07-10] MEDS: TICAGRELOR 90 MG TABLET PO SCH ×2 (10:44→21:12)
[2017-07-10 11:33] VITALS: BP 83/54
[2017-07-10] MEDS: AMOXICILLIN 250 MG CAPSULE PO SCH ×2 (13:26→21:11)
[2017-07-10] MEDS: TRAMADOL HCL 50 MG TABLET PO PRN (16:06)
[2017-07-10 16:31] VITALS: BP 94/57
[2017-07-10 20:07] VITALS: BP 113/65
[2017-07-10] MEDS: ATORVASTATIN CALCIUM 20 MG TABLET PO SCH (21:12)
[2017-07-11] VITALS: BP 105/68
[2017-07-11 03:30] VITALS: BP 95/66
[2017-07-11 04:53] LABS: CREATININE 1.2 mg/dL (0.5-1.5); POTASSIUM 4.2 mmol/L (3.5-5.1)
[2017-07-11] MEDS: FUROSEMIDE 10 MG/ML 4ML VIAL IV SCH ×2 (06:50→16:41)
[2017-07-11] MEDS: AMOXICILLIN 250 MG CAPSULE PO SCH ×4 (06:50→17:27)
[2017-07-11 07:00] VITALS: BP_SYST 101; BP_SYST 103; BP_DIAS 52; BP_DIAS 65
[2017-07-11] MEDS: INSULIN HUMULIN R 100 UNIT/ML 3ML SQ SCH ×3 (07:30→16:30)
[2017-07-11] MEDS ORDERED: FURO40TA7 PO (08:59)
[2017-07-11] MEDS ORDERED: TRAM50TA4 PO (08:59)
[2017-07-11] MEDS ORDERED: AMIO200T44 PO (08:59)
[2017-07-11] MEDS ORDERED: AMOX250C4 PO (08:59)
[2017-07-11] MEDS ORDERED: TICA90TA PO (08:59)
[2017-07-11] MEDS ORDERED: TAMS-1 PO (08:59)
[2017-07-11] MEDS: FUROSEMIDE 40 MG TABLET PO SCH ×3 (09:00→17:28)
[2017-07-11] MEDS: SPIRONOLACTONE 25 MG TAB PO SCH (10:48)
[2017-07-11] MEDS: TICAGRELOR 90 MG TABLET PO SCH (10:49)
[2017-07-11] MEDS: FAMOTIDINE 20MG TAB 20 MG TAB PO SCH (10:49)
[2017-07-11] MEDS: AMIODARONE HCL 200 MG TABLET PO SCH (10:49)
[2017-07-11] MEDS: CARVEDILOL 6.25 MG TABLET PO SCH (10:49)
[2017-07-11] MEDS: TAMSULOSIN HCL 0.4 MG CAP.ER.24H PO SCH (10:49)
[2017-07-11] MEDS: ALLOPURINOL 100 MG TABLET PO SCH (10:49)
[2017-07-11] MEDS: LISINOPRIL 5 MG TABLET PO SCH (10:50)
[2017-07-11] MEDS: POTASSIUM CHLORIDE 20 MEQ ERTAB PO SCH ×2 (10:50→17:27)
[2017-07-11 11:00] VITALS: BP 90/51
[2017-07-11] MEDS ORDERED: SPIR25TA PO (11:07)
[2017-07-11] MEDS ORDERED: POTA-9 PO (11:07)
[2017-07-11] MEDS ORDERED: CARV6.2579 PO (11:07)
[2017-07-11] MEDS ORDERED: LISI-617 PO (11:07)
[2017-07-11 16:00] VITALS: BP 98/52
[2017-08-28] MEDS ORDERED: SPIR25TA6 PO ×2 (13:43→13:47)
[2017-08-28] MEDS ORDERED: OMEP20CA10 PO (13:43)
[2017-08-28] MEDS ORDERED: TICA90TA PO (13:43)
[2017-08-28] MEDS ORDERED: CARV6.25 PO (13:43)
[2017-08-28] MEDS ORDERED: SIMV40TA5 PO (13:43)
[2017-08-28] MEDS ORDERED: SITA50TA PO (13:43)
[2017-08-28] MEDS ORDERED: AMIO200T5 PO (13:43)
[2017-08-28] MEDS ORDERED: FURO-151 PO (13:43)
[2017-08-28] MEDS ORDERED: ASPI-555 PO (13:43)
== END 2017-07-11 19:40 | disposition home or self-care (01) | DRG 280 ==
LOC: EDH 23:45 → EDHIP 06-24 01:15 → 2CH 06-24 05:24 → 2BH 06-24 20:14 → 2DH 06-26 18:21 → 2CH 07-02 11:45 → 2CV 07-06 05:20 → 2BH 07-06 06:15 → 2AH 07-06 17:29 → 2DH 07-08 20:39 → 2AH 07-08 20:59 → 2DH 07-08 22:11
PROVIDERS: ADMIT Internal Medicine; ATTEND Internal Medicine
PROC: 0W9B3ZZ Drainage of Left Pleural Cavity, Percutaneous Approach (ICD-10-PCS; 2017-06-27)
PROC: 4A023N7 Measurement of Cardiac Sampling and Pressure, Left Heart, Percutaneous Approach (ICD-10-PCS; principal; 2017-07-02)
PROC: B2111ZZ Fluoroscopy of Multiple Coronary Arteries using Low Osmolar Contrast (ICD-10-PCS; 2017-07-02)
PROC: 5A09357 Assistance with Respiratory Ventilation, Less than 24 Consecutive Hours, Continuous Positive Airway Pressure (ICD-10-PCS; 2017-07-05)
PROC: 5A09357 Assistance with Respiratory Ventilation, Less than 24 Consecutive Hours, Continuous Positive Airway Pressure (ICD-10-PCS; 2017-07-06)
PROC: 5A09357 Assistance with Respiratory Ventilation, Less than 24 Consecutive Hours, Continuous Positive Airway Pressure (ICD-10-PCS; 2017-07-07)
PROC: 5A09357 Assistance with Respiratory Ventilation, Less than 24 Consecutive Hours, Continuous Positive Airway Pressure (ICD-10-PCS; 2017-07-08)
PROC: 5A09357 Assistance with Respiratory Ventilation, Less than 24 Consecutive Hours, Continuous Positive Airway Pressure (ICD-10-PCS; 2017-07-09)
DX: I21.09 ST elevation (STEMI) myocardial infarction involving other coronary artery of anterior wall (principal); I50.43 Acute on chronic combined systolic (congestive) and diastolic (congestive) heart failure; J90 Pleural effusion, not elsewhere classified; D68.59 Other primary thrombophilia; I27.20 Pulmonary hypertension, unspecified; E66.01 Morbid (severe) obesity due to excess calories; E83.42 Hypomagnesemia; I47.1 Supraventricular tachycardia; N39.0 Urinary tract infection, site not specified; I11.0 Hypertensive heart disease with heart failure; E11.9 Type 2 diabetes mellitus without complications; B95.2 Enterococcus as the cause of diseases classified elsewhere; E78.5 Hyperlipidemia, unspecified; E87.6 Hypokalemia; G47.33 Obstructive sleep apnea (adult) (pediatric); I25.10 Atherosclerotic heart disease of native coronary artery without angina pectoris; I25.5 Ischemic cardiomyopathy; I48.0 Paroxysmal atrial fibrillation; I48.2 Chronic atrial fibrillation; J44.9 Chronic obstructive pulmonary disease, unspecified; M10.9 Gout, unspecified; N28.1 Cyst of kidney, acquired; N40.0 Benign prostatic hyperplasia without lower urinary tract symptoms; R31.0 Gross hematuria; Z79.01 Long term (current) use of anticoagulants; I25.2 Old myocardial infarction; Z79.82 Long term (current) use of aspirin; Z79.899 Other long term (current) drug therapy; Z86.79 Personal history of other diseases of the circulatory system; Z98.61 Coronary angioplasty status; Z68.35 Body mass index [BMI] 35.0-35.9, adult; Z88.1 Allergy status to other antibiotic agents
CPT/HCPCS: 32555; 36415; 71045; 71046; 74176; 80048; 80053; 80076; 81001; 81003; 82550; 82553; 82945; 82948; 83615; 83735; 83874; 83880; 83986; 84132; 84157; 84484; 85025; 85027; 85610; 85730; 86022; 87040; 87071; 87088; 87186; 87205; 88108; 88305; 89051; 93005; 93306; 93459; 93970; 94660; 94760; 97039; 99291; A4218; A4344; C1769; C1894; J0153; J0282; J0583; J0696; J1327; J1644; J1650; J1815; J1940; J3475; J3480; J3490; J7060; P9045; Q9967

== ENCOUNTER 2017-08-30 06:36 | Observation (INO) | payer OTHER ==
[2017-08-28 12:59] LABS: BASOPHILS % (AUTO) 0.8 % (0.0-5.0); EOSINOPHILS % (AUTO) 1.6 % (0.0-8.0); HEMATOCRIT 31.9 % (42-54); MEAN CORPUSCULAR HEMOGLOBIN 27.6 pg (27.0-33.0); MEAN CORPUSCULAR HGB CONC 32.1 g/dL (32.0-36.0); MONOCYTES % (AUTO) 9.2 % (3.0-13.0); NEUTROPHILS % (AUTO) 81.4 % (40.0-77.0); PLATELET COUNT (AUTO) 182 K/uL (130-400); RED BLOOD CELL COUNT(AUTO) 3.71 MIL/uL (4.50-6.20); RED CELL DISTRIBUTION WIDTH 16.9 % (11.0-15.5); WHITE BLOOD COUNT (AUTO) 11.2 K/uL (4.8-10.8)
[2017-08-28 13:15] LABS: CREATININE 1.5 mg/dL (0.5-1.5); POTASSIUM 3.3 mmol/L (3.5-5.1)
[2017-08-28 14:12] VITALS: BP 92/62
[2017-08-30] VITALS (11 sets, daily range): BP systolic 97–123; BP diastolic 55–73
[~2017-08-30] VITALS: Ht 172.7 cm; Wt 102.4 kg
[~2017-08-30 06:36] MED LIST changes: -ALLO100T PO; +AMIO200T5 PO; +CARV6.25 PO; +CEFAZOLIN SODIUM 1 GM VIAL IVP SCH; -DOXA4TAB3 PO; +FURO-151 PO; -LISI40TA4 PO; -METF500T6 PO; +OMEP20CA10 PO; -OMEP20TA25 PO; -RIVA20TA PO; +SITA50TA PO; +SODIUM CHLORIDE 0.9% 1000ML 1,000 ML IV SCH; +SPIR25TA6 PO; +TICA90TA PO; -TRIA1TAB5 PO
[2017-08-30 07:21] LABS: CREATININE 1.4 mg/dL (0.5-1.5); POTASSIUM 3.6 mmol/L (3.5-5.1)
[2017-08-30 07:46] LABS: HEMATOCRIT 31.3 % (42-54); MEAN CORPUSCULAR HEMOGLOBIN 28.3 pg (27.0-33.0); MEAN CORPUSCULAR HGB CONC 32.8 g/dL (32.0-36.0); MEAN CORPUSCULAR VOLUME 86.2 fL (79-99); NUCLEATED RED BLOOD CELLS 0.1 % (0.0-0.19); PLATELET COUNT (AUTO) 155 K/uL (130-400); RED BLOOD CELL COUNT(AUTO) 3.64 MIL/uL (4.50-6.20); RED CELL DISTRIBUTION WIDTH 16.5 % (11.0-15.5)
[2017-08-30] MEDS ORDERED: LIDOCAINE HCL-MPF 2% 5ML VIAL ONE (08:11)
[2017-08-30] MEDS ORDERED: CEFAZOLIN SODIUM 1 GM VIAL ONE (08:12)
[2017-08-30] MEDS ORDERED: MEPERIDINE-PF 25 MG/ML SYG ONE (08:12)
[2017-08-30] MEDS ORDERED: MIDAZOLAM HCL 1 MG/ML 2ML VIAL ONE (08:12)
[2017-08-30] MEDS ORDERED: BUPIVACAINE/PF 0.25% 50ML VIAL IJ ONE (08:13)
[2017-08-30 08:18] LABS: INR 1.04 (0.85-1.15); PARTIAL THROMBOPLASTIN TIME 25.7 SEC (26.3-35.5); PROTHROMBIN TIME 10.9 SEC (9.6-11.6)
[2017-08-30] MEDS ORDERED: TEMAZEPAM 30 MG CAP PO PRN (10:30)
[2017-08-30] MEDS ORDERED: ACETAMINOPHEN 325 MG TAB PO PRN (10:30)
[2017-08-30] MEDS ORDERED: ACETAMINOPHEN-CODEINE 300/30MG TAB PO PRN ×3 (10:30)
[2017-08-30] MEDS ORDERED: INSULIN HUMULIN R 100 UNIT/ML 3ML SQ PRN (10:30)
[2017-08-30] MEDS ORDERED: DEXTROSE 50%-WATER 50 ML DISP.SYRIN IV PRN (10:30)
[2017-08-30] MEDS: INSULIN HUMULIN R 100 UNIT/ML 3ML SQ SCH ×2 (16:30→21:00)
[2017-08-30] MEDS: TICAGRELOR 90 MG TABLET PO SCH (20:40)
[2017-08-30] MEDS: AMIODARONE HCL 200 MG TABLET PO SCH (20:40)
[2017-08-30] MEDS ORDERED: ATORVASTATIN CALCIUM 20 MG TABLET PO SCH (21:00)
[2017-08-31 03:52] VITALS: BP 114/80
[2017-08-31] MEDS: INSULIN HUMULIN R 100 UNIT/ML 3ML SQ SCH (05:57)
[2017-08-31 07:41] VITALS: BP 100/67
[2017-08-31] MEDS ORDERED: SPIRONOLACTONE 25 MG TAB PO SCH (09:00)
[2017-08-31] MEDS ORDERED: CARVEDILOL 3.125 MG TABLET PO SCH (09:00)
[2017-08-31] MEDS ORDERED: LINAGLIPTIN 5 MG TABLET PO SCH (09:00)
[2017-08-31] MEDS ORDERED: PANTOPRAZOLE SODIUM 40 MG TABLET.DR PO SCH (09:00)
[2017-08-31] MEDS ORDERED: ASPIRIN 81 MG EC TAB PO SCH (09:00)
[2017-08-31] MEDS ORDERED: FUROSEMIDE 40 MG TABLET PO SCH (09:00)
[2017-08-31] MEDS: AMIODARONE HCL 200 MG TABLET PO SCH (10:09)
[2017-08-31] MEDS: TICAGRELOR 90 MG TABLET PO SCH (10:10)
[2017-08-31 11:40] VITALS: BP 106/63
== END 2017-08-31 12:31 | disposition home or self-care (01) ==
LOC: DAH 06:36 → DAHIP 06:37 → DAH 06:37 → 2AH 11:03
PROVIDERS: ADMIT Internal Medicine Cardiovascular Disease; ATTEND Internal Medicine Cardiovascular Disease
DX: I25.5 Ischemic cardiomyopathy (principal); I48.91 Unspecified atrial fibrillation; I50.9 Heart failure, unspecified; I47.2 Ventricular tachycardia; I25.10 Atherosclerotic heart disease of native coronary artery without angina pectoris; E78.00 Pure hypercholesterolemia, unspecified; E66.9 Obesity, unspecified
CPT/HCPCS: 33249; 36415 ×2; 71045; 80048 ×2; 82948 ×4; 85025; 85027; 85610; 85730; 93005; A4606; C1722; C1895; G0378 ×30; J0690; J2175; J2250; J3490 ×2; J7030; 99156; 99157

== ENCOUNTER 2017-12-30 17:08 | Observation (INO) | payer OTHER ==
[~2017-12-30] VITALS: Ht 172.7 cm; Wt 97.9 kg
[~2017-12-30 17:08] MED LIST changes: +ALLO100T PO; -CEFAZOLIN SODIUM 1 GM VIAL IVP SCH; +FLUT1BLS3 IH; +METO2.5T2 PO; +POTA10TA11 PO; -SODIUM CHLORIDE 0.9% 1000ML 1,000 ML IV SCH
[2017-12-30 17:49] LABS: BASOPHILS % (AUTO) 0.5 % (0.0-5.0); EOSINOPHILS % (AUTO) 1.8 % (0.0-8.0); HEMATOCRIT 29.9 % (42-54); LYMPHOCYTES % (AUTO) 6.9 % (21.0-51.0); MEAN CORPUSCULAR HEMOGLOBIN 23.9 pg (27.0-33.0); MEAN CORPUSCULAR HGB CONC 31.6 g/dL (32.0-36.0); MEAN CORPUSCULAR VOLUME 75.9 fL (79-99); MONOCYTES % (AUTO) 9.2 % (3.0-13.0); NEUTROPHILS % (AUTO) 81.6 % (40.0-77.0); NUCLEATED RED BLOOD CELLS 0.1 % (0.0-0.19); PLATELET COUNT (AUTO) 135 K/uL (130-400); RED BLOOD CELL COUNT(AUTO) 3.94 MIL/uL (4.50-6.20); RED CELL DISTRIBUTION WIDTH 20.4 % (11.0-15.5); WHITE BLOOD COUNT (AUTO) 10.9 K/uL (4.8-10.8)
[2017-12-30] MEDS ORDERED: MAGNESIUM 2GM PREMIX 50ML 50 ML IV ONE (17:49)
[2017-12-30 18:30] LABS: CREATININE 1.5 mg/dL (0.5-1.5); MAGNESIUM 1.6 mg/dL (1.80-2.40)
[2017-12-30 18:32] LABS: POTASSIUM 2.8 mmol/L (3.5-5.1)
[2017-12-30] MEDS ORDERED: POTASSIUM CHLORIDE 20MEQ/100ML 100 ML IV ONE (18:36)
[2017-12-30 18:59] LABS: INR 1.08 (0.85-1.15); PARTIAL THROMBOPLASTIN TIME 27.3 SEC (26.3-35.5); PROTHROMBIN TIME 11.3 SEC (9.6-11.6)
[2017-12-30 19:10] LABS: ALBUMIN 2.8 g/dL (3.5-5.0); BILIRUBIN,DIRECT 0.9 mg/dL (0.0-0.3); BILIRUBIN,TOTAL 1.5 mg/dL (0.2-1.0); TOTAL PROTEIN, SERUM 6.8 g/dL (6.0-8.3)
[2017-12-30] MEDS ORDERED: POTASSIUM CHLORIDE 10% ELIXIR 20 MEQ/15 ML UDCUP PO PRN (21:00)
[2017-12-30] MEDS ORDERED: POTASSIUM CHLORIDE 10% ELIXIR 20 MEQ/15 ML UDCUP ONE (21:07)
[2017-12-31] VITALS (7 sets, daily range): BP systolic 89–114; BP diastolic 54–75
[2017-12-31] MEDS ORDERED: TRAMADOL HCL 50 MG TABLET PO PRN (02:00)
[2017-12-31] MEDS ORDERED: LACT10SO9 PO (02:00)
[2017-12-31] MEDS ORDERED: TRAM50TA4 PO (02:00)
[2017-12-31] MEDS ORDERED: TAMS0.4C32 PO (02:00)
[2017-12-31] MEDS ORDERED: ACETAMINOPHEN 325 MG TAB PO PRN (02:00)
[2017-12-31] MEDS ORDERED: MAGNESIUM HYDROXIDE 30 ML/UDCUP PO PRN (02:00)
[2017-12-31] MEDS ORDERED: TORS20TA4 PO (02:00)
[2017-12-31] MEDS ORDERED: MAGN100T5 PO (02:00)
[2017-12-31] MEDS ORDERED: HYDR-4153 PO (02:00)
[2017-12-31] MEDS ORDERED: MAGN400O17 PO (02:00)
[2017-12-31] MEDS ORDERED: MILR1VIA IV (02:00)
[2017-12-31] MEDS ORDERED: NYST1POW10 MC (02:00)
[2017-12-31] MEDS ORDERED: MILRINONE LACTATE IV SCH (02:00)
[2017-12-31] MEDS ORDERED: PANT40TA25 PO (02:00)
[2017-12-31] MEDS ORDERED: ENOX30DI4 SQ (02:00)
[2017-12-31] MEDS ORDERED: LACTULOSE 20 GM/30 ML UDCUP PO PRN (02:00)
[2017-12-31] MEDS ORDERED: SIME80TA12 PO (02:00)
[2017-12-31] MEDS ORDERED: ACET-2900 PO (02:00)
[2017-12-31 02:35] LABS: BASOPHILS % (AUTO) 0.7 % (0.0-5.0); EOSINOPHILS % (AUTO) 1.3 % (0.0-8.0); HEMATOCRIT 27.9 % (42-54); LYMPHOCYTES % (AUTO) 8.2 % (21.0-51.0); MEAN CORPUSCULAR HEMOGLOBIN 23.9 pg (27.0-33.0); MEAN CORPUSCULAR HGB CONC 31.6 g/dL (32.0-36.0); MEAN CORPUSCULAR VOLUME 75.8 fL (79-99); MONOCYTES % (AUTO) 9.2 % (3.0-13.0); NEUTROPHILS % (AUTO) 80.6 % (40.0-77.0); NUCLEATED RED BLOOD CELLS 0.1 % (0.0-0.19); PLATELET COUNT (AUTO) 142 K/uL (130-400); RED BLOOD CELL COUNT(AUTO) 3.68 MIL/uL (4.50-6.20); RED CELL DISTRIBUTION WIDTH 19.7 % (11.0-15.5); WHITE BLOOD COUNT (AUTO) 10.6 K/uL (4.8-10.8)
[2017-12-31 02:51] LABS: ALBUMIN 2.6 g/dL (3.5-5.0); BILIRUBIN,TOTAL 1.5 mg/dL (0.2-1.0); CREATININE 1.3 mg/dL (0.5-1.5); POTASSIUM 3.4 mmol/L (3.5-5.1); TOTAL PROTEIN, SERUM 6.3 g/dL (6.0-8.3)
[2017-12-31] MEDS: Fluticasone/Umeclidin/Vilanter (Trelegy Ellipta 100-62.5 IH SCH ×2 (09:00→20:59)
[2017-12-31] MEDS ORDERED: NYSTATIN 15 GM POWDER TP SCH (09:00)
[2017-12-31] MEDS: MAGNESIUM AMINO ACID CHELATE PO SCH ×2 (09:00→20:59)
[2017-12-31] MEDS: TAMSULOSIN HCL 0.4 MG CAP.ER.24H PO SCH (10:01)
[2017-12-31] MEDS: METOLAZONE 2.5 MG TABLET PO SCH (10:08)
[2017-12-31] MEDS: TICAGRELOR 90 MG TABLET PO SCH ×2 (10:08→20:59)
[2017-12-31] MEDS: TORSEMIDE 20 MG TAB PO SCH (10:08)
[2017-12-31] MEDS: ENOXAPARIN SODIUM 30 MG/0.3 ML SQ SCH (10:09)
[2017-12-31] MEDS: SPIRONOLACTONE 25 MG TAB PO SCH (10:09)
[2017-12-31] MEDS: SIMETHICONE 80 MG TAB.CHEW PO SCH ×4 (10:09→20:59)
[2017-12-31] MEDS: POTASSIUM CHLORIDE 10 MEQ/TAB.SA PO SCH (10:09)
[2017-12-31] MEDS: PANTOPRAZOLE SODIUM 40 MG TABLET.DR PO SCH (10:09)
[2017-12-31] MEDS: ASPIRIN 81MG TAB.CHEW PO SCH (10:09)
[2017-12-31] MEDS: ALLOPURINOL 100 MG TABLET PO SCH (10:09)
[2017-12-31] MEDS: HYDRALAZINE HCL 25 MG TABLET PO SCH ×2 (10:10→21:02)
[2017-12-31] MEDS: CARVEDILOL 6.25 MG TABLET PO SCH (10:11)
[2017-12-31] MEDS ORDERED: MILRINONE-D5W 20 MG/100 ML 100 ML IV SCH ×2 (12:00→16:04)
[2017-12-31] MEDS: ACETAMINOPHEN-CODEINE 300/30MG TAB PO PRN ×2 (12:58→22:47)
[2017-12-31] MEDS: POTASSIUM CHLORIDE 20 MEQ ERTAB PO PRN ×2 (18:30→22:47)
[2017-12-31] MEDS: NYSTATIN 15 GM POWDER TP SCH (21:02)
[2018-01-01 03:41] VITALS: BP 93/67
[2018-01-01 05:03] LABS: CREATININE 1.3 mg/dL (0.5-1.5)
[2018-01-01 05:05] LABS: POTASSIUM 2.7 mmol/L (3.5-5.1)
[2018-01-01] MEDS: POTASSIUM CHLORIDE 20MEQ/100ML 100 ML IV PRN ×2 (05:49→08:36)
[2018-01-01] MEDS: POTASSIUM CHLORIDE 20 MEQ ERTAB PO PRN ×5 (05:49→16:54)
[2018-01-01] MEDS: LIDOCAINE HCL-MPF 1% 2ML VIAL IJ PRN ×2 (05:49→08:58)
[2018-01-01 07:00] VITALS: BP 97/65
[2018-01-01] MEDS: ASPIRIN 81MG TAB.CHEW PO SCH (08:32)
[2018-01-01] MEDS: TAMSULOSIN HCL 0.4 MG CAP.ER.24H PO SCH (08:32)
[2018-01-01] MEDS: SIMETHICONE 80 MG TAB.CHEW PO SCH ×4 (08:32→21:06)
[2018-01-01] MEDS: TORSEMIDE 20 MG TAB PO SCH (08:32)
[2018-01-01] MEDS: ALLOPURINOL 100 MG TABLET PO SCH (08:32)
[2018-01-01] MEDS: ENOXAPARIN SODIUM 30 MG/0.3 ML SQ SCH (08:32)
[2018-01-01] MEDS: TICAGRELOR 90 MG TABLET PO SCH ×2 (08:34→21:05)
[2018-01-01] MEDS: SPIRONOLACTONE 25 MG TAB PO SCH (08:34)
[2018-01-01] MEDS: PANTOPRAZOLE SODIUM 40 MG TABLET.DR PO SCH (08:34)
[2018-01-01] MEDS: POTASSIUM CHLORIDE 10 MEQ/TAB.SA PO SCH (08:34)
[2018-01-01] MEDS: CARVEDILOL 6.25 MG TABLET PO SCH (08:36)
[2018-01-01] MEDS: HYDRALAZINE HCL 25 MG TABLET PO SCH ×2 (08:45→21:06)
[2018-01-01] MEDS: NYSTATIN 15 GM POWDER TP SCH ×2 (08:46→21:12)
[2018-01-01] MEDS: Fluticasone/Umeclidin/Vilanter (Trelegy Ellipta 100-62.5 IH SCH ×2 (08:46→21:00)
[2018-01-01] MEDS: MAGNESIUM AMINO ACID CHELATE PO SCH ×2 (09:00→21:00)
[2018-01-01 11:00] VITALS: BP 87/61
[2018-01-01] MEDS: SENNOSIDES 8.6 MG TABLET PO SCH ×3 (11:00→21:00)
[2018-01-01] MEDS: MAGNESIUM OXIDE 400 MG TABLET PO SCH (11:22)
[2018-01-01] MEDS: ACETAMINOPHEN-CODEINE 300/30MG TAB PO PRN ×2 (12:43→20:07)
[2018-01-01] MEDS: HONEY 1 APPL/ML TUBE TP SCH (14:15)
[2018-01-01 16:00] VITALS: BP 89/54
[2018-01-01] MEDS ORDERED: GUAIFENESIN SUGAR-FREE 100 MG/5 ML UDCUP PO PRN (16:15)
[2018-01-01 19:37] VITALS: BP 94/67
[2018-01-01 23:57] VITALS: BP 88/63
[2018-01-02 03:43] VITALS: BP 94/56
[2018-01-02 04:18] LABS: CREATININE 1.3 mg/dL (0.5-1.5); POTASSIUM 3.6 mmol/L (3.5-5.1)
[2018-01-02] MEDS: POTASSIUM CHLORIDE 20 MEQ ERTAB PO PRN ×2 (05:28→06:42)
[2018-01-02 07:00] VITALS: BP 88/55
[2018-01-02] MEDS: MAGNESIUM AMINO ACID CHELATE PO SCH (09:00)
[2018-01-02] MEDS: NYSTATIN 15 GM POWDER TP SCH (09:00)
[2018-01-02] MEDS: SENNOSIDES 8.6 MG TABLET PO SCH (09:00)
[2018-01-02] MEDS: HYDRALAZINE HCL 25 MG TABLET PO SCH (09:00)
[2018-01-02] MEDS: HONEY 1 APPL/ML TUBE TP SCH (09:00)
[2018-01-02] MEDS ORDERED: POTASSIUM CHLORIDE 20 MEQ ERTAB PO SCH (09:00)
[2018-01-02] MEDS: Fluticasone/Umeclidin/Vilanter (Trelegy Ellipta 100-62.5 IH SCH (09:00)
[2018-01-02] MEDS: MAGNESIUM OXIDE 400 MG TABLET PO SCH (09:21)
[2018-01-02] MEDS: TICAGRELOR 90 MG TABLET PO SCH (09:21)
[2018-01-02] MEDS: ENOXAPARIN SODIUM 30 MG/0.3 ML SQ SCH (09:21)
[2018-01-02] MEDS: TORSEMIDE 20 MG TAB PO SCH (09:22)
[2018-01-02] MEDS: SPIRONOLACTONE 25 MG TAB PO SCH (09:22)
[2018-01-02] MEDS: ALLOPURINOL 100 MG TABLET PO SCH (09:22)
[2018-01-02] MEDS: CARVEDILOL 6.25 MG TABLET PO SCH (09:23)
[2018-01-02] MEDS: METOLAZONE 2.5 MG TABLET PO SCH (09:23)
[2018-01-02] MEDS: SIMETHICONE 80 MG TAB.CHEW PO SCH ×2 (09:23→14:06)
[2018-01-02] MEDS: TAMSULOSIN HCL 0.4 MG CAP.ER.24H PO SCH (09:24)
[2018-01-02] MEDS: ASPIRIN 81MG TAB.CHEW PO SCH (09:24)
[2018-01-02] MEDS: PANTOPRAZOLE SODIUM 40 MG TABLET.DR PO SCH (09:25)
[2018-01-02] MEDS ORDERED: POTASSIUM CHLORIDE 20 MEQ ERTAB PO ONE (10:00)
[2018-01-02 11:00] VITALS: BP 86/52
[2018-01-02] MEDS: ACETAMINOPHEN-CODEINE 300/30MG TAB PO PRN (15:13)
[2018-01-02 16:00] VITALS: BP 93/55
== END 2018-01-02 20:00 | disposition short-term general hospital (02) ==
LOC: EDH 17:08 → INTOOBSV 20:06 → EDHIP 20:06 → 2AH 12-31 00:15
PROVIDERS: ADMIT Internal Medicine Critical Care Medicine; ATTEND Internal Medicine Critical Care Medicine
DX: E87.6 Hypokalemia (principal); E83.42 Hypomagnesemia; E86.0 Dehydration; I11.0 Hypertensive heart disease with heart failure; I50.22 Chronic systolic (congestive) heart failure; E11.621 Type 2 diabetes mellitus with foot ulcer; E11.22 Type 2 diabetes mellitus with diabetic chronic kidney disease; E44.0 Moderate protein-calorie malnutrition; I25.10 Atherosclerotic heart disease of native coronary artery without angina pectoris; I48.2 Chronic atrial fibrillation; L97.419 Non-pressure chronic ulcer of right heel and midfoot with unspecified severity; L97.429 Non-pressure chronic ulcer of left heel and midfoot with unspecified severity; N17.9 Acute kidney failure, unspecified; Z95.1 Presence of aortocoronary bypass graft
CPT/HCPCS: 36415 ×4; 71045; 80048 ×3; 80053; 80076; 82948 ×9; 83735; 83880; 84132; 84484; 85025 ×2; 85610; 85730; 93005; 93925; 96365; 96366 ×4; 96367; 96372 ×3; 97039 ×4; 97161; 99291; A5113; G0378 ×72; G8978; G8979; G8980; G8981; G8982; G8983; J1650 ×3; J2260 ×2; J3475; J3480 ×3; J3490